=== PATIENT | female | born 1945 | race American Indian/Alaskan Native ===

== ENCOUNTER 2016-12-14 13:33 | Emergency (ER) | payer MEDICARE ==
[2016-12-14] MEDS ORDERED: PERCOCET 5/325 PO ONE (15:14)
--- NOTE | 2016-12-14 16:56 | Cat Scan Report ---
FINAL REPORT PROCEDURE: CT CERVICAL SPINE WO CON TECHNIQUE: Computerized tomography of the cervical spine was performed from the skull base to T1 without contrast material. HISTORY: Neck pain after fall. COMPARISON: CT scan dated 09/27/2016. FINDINGS: C2-3: [place] through the right C3 lamina unchanged. Mild diffuse disc bulge. C3-4: Right-sided facet arthropathy. Moderate right paracentral disc bulge/herniation. C4-5: Moderate right-sided arthropathy with moderate foraminal stenosis. Small posterior and uncovertebral osteophytes. Mild disc bulge. C5-6: On sagittal images there is slight increased density overlying the spinal canal at C5-6. This is similar to prior examination. C6-7: Similar to above level. C7-T1: No significant abnormality. Other: Normal alignment. Straightening of cervical lordosis. Slight C4-5 anterolisthesis. Multilevel osteophytes. Atherosclerosis. IMPRESSION: Osteopenia and degenerative changes of the cervical spine. No CT evidence of cervical spine fracture. [place] through the right C3 lamina and slight increase in density on sagittal images overlying the spinal canal at C5-6, felt to most likely be artifact and/or volume averaging. Findings are felt to be unchanged compared to prior study. Consider further evaluation including MRI of the brain if there is continued clinical concern and patient has no contraindication to MRI.
--- NOTE | 2016-12-14 17:06 | Cat Scan Report ---
FINAL REPORT EXAM: CT HEAD/BRAIN WO CON HISTORY: headache s/p fall COMPARISON: September 2016. TECHNIQUE: Axial images obtained skull base through vertex. FINDINGS: No acute intracranial hemorrhage, midline shift or pathologic extra axial fluid collection. Age related volume loss with compensatory dilatation of the ventricular system and chronic small vessel ischemic disease. Otherwise, singh-white differentiation preserved. Calvarium grossly intact. Chronic lacunar infarcts of the left coronal radiata and bilateral basal ganglia. Remote left pontine infarct measuring 5 millimeters. Mild mucosal thickening of the paranasal sinuses. Mastoid air cells are clear. Visualized orbits are grossly unremarkable. IMPRESSION: No grossly acute intracranial abnormality. Mild to moderate age related volume loss and chronic small vessel ischemic disease. Stable chronic lacunar infarcts.
--- NOTE | 2016-12-14 17:42 | Emergency Department Report ---
HPI - General Chief Complaint: Fall Time Seen by Provider: 12/14/16 15:08 - HPI HPI: Chief complaint: Fall, headache, right shoulder, right rib and low back pain HPI: Patient is 71-year-old female with a history of sciatica, right rotator cuff injury, chronic pain who is followed by chronic pain physician and takes Percocet 10 on a regular basis he states that she fell on Thursday and hit the right side of her face and her right shoulder. Mode of arrival: [EMS] Source: [Patient] Began: Thursday Duration: 3 days Context: See above Quality: Dull Severity: 10 out of 10 Improved with: Nothing Worsened with: Movement of right shoulder Associated signs and symptoms: No incontinence of urine or stool. ED Past Medical Hx - Past Medical History Previous Medical History?: Yes Hx Hypertension: Yes Hx CVA: Yes Hx Diabetes: Yes Additional medical history: Scoliosis, chronic pain, left sciatica - Surgical History Additional Surgical History: right shoulder rotator cuff surgery - Social History Smoking Status: Never Smoker Substance Use Type: None - Medications Home Medications: Home Medications Medication Instructions Recorded Confirmed Last Taken Type Aspirin [Aspirin BABY CHEW TAB] 81 mg PO QDAY 07/29/15 09/28/16 1 Day Ago History Bupropion HCl [buPROPion] 75 mg PO BID 07/29/15 09/28/16 1 Day Ago History Carboxymethyl/Gly/Poly80/Pf 1 drop OU QID 07/29/15 09/28/16 1 Day Ago History [Refresh Optive Advanced Drops] Lisinopril [Zestril TAB] 20 mg PO QDAY 07/29/15 09/28/16 1 Day Ago History Metoprolol [Lopressor TAB] 150 mg PO BID 07/29/15 09/28/16 1 Day Ago History Simvastatin [Zocor TAB] 20 mg PO QHS 07/29/15 09/28/16 1 Day Ago History amLODIPine [Norvasc] 10 mg PO DAILY #30 tab 08/02/15 09/28/16 1 Day Ago Rx HYDROcodone/APAP 5-325 [[place] 1 each PO Q6HR PRN #20 tablet 08/30/16 09/28/16 1 Day Ago Rx 5-325 mg TAB] HYDROcodone/APAP 5-325 [[place] 1 each PO Q6HR PRN #10 tablet 09/19/16 09/28/16 1 Day Ago Rx 5/325] Omeprazole Magnesium [PriLOSEC Otc] 40 mg PO QDAY 09/19/16 09/28/16 1 Day Ago History oxyCODONE /ACETAMINOPHEN [Percocet 1 tab PO Q6HR PRN #20 tablet 12/14/16 Unknown Rx 5/325 mg] ED Review of Systems ROS: Stated complaint: FALL Other details as noted in HPI ROS Constitutional: No fever ENT: No uri symptoms Cardiovascular: No chest pain Respiratory: No sob or cough GI: No nausea vomiting or diarrhea : No dysuria frequency or urgency, Skin: No rash Neuro: Patient uses a cane and sometimes a wheelchair because of her sciatica Psych: No depression Edvin/lymph: No edema Physical Exam - Physical Exam Vital Signs: Vital Signs 12/14/16 16:16 Respiratory 18 Rate Physical Exam: GENERAL: The patient is well-developed well-nourished . HEENT: Normocephalic. Extraocular motions are intact. Patient has moist mucous membranes. Ecchymosis to the right spiritism area. TMs negative. Pupils equal round react to light. NECK: Supple. No meningitic signs are noted. There is no adenopathy noted. CHEST/LUNGS: Clear to auscultation. There is no respiratory distress noted. HEART/CARDIOVASCULAR: Regular. There is no tachycardia. There is no gallop rub or murmur. ABDOMEN: Abdomen is soft, nontender. Patient has normal bowel sounds. There is no abdominal distention. SKIN: There is no rash. There is no edema. There is no diaphoresis. NEURO: The patient is awake, alert, and oriented. The patient is cooperative. The patient has no focal neurologic deficits. The patient has normal speech. MUSCULOSKELETAL: Full range of motion of all extremities. Pain diffusely to the right shoulder. Negative straight leg raise. ED Course Vital Signs 12/14/16 16:16 Respiratory 18 Rate - Reevaluation(s) Reevaluation #1: 12/14/16 Patient given 5 mg Percocet here in the emergency department. ED Medical Decision Making - Radiology Data Radiology results: report reviewed (CT of the head and C-spine showed no acute process.) interpreted by me: X-ray of the right shoulder, right ribs showed no acute process. X-ray of the lumbar spine shows significant scoliosis and degenerative disc disease but no acute fracture. Critical care attestation.: If time is entered above; I have spent that time in minutes in the direct care of this critically ill patient, excluding procedure time. ED Disposition Clinical Impression: Shoulder contusion Qualifiers: Encounter type: initial encounter Laterality: right Qualified Code(s): S40.011A - Contusion of right shoulder, initial encounter Facial contusion Qualifiers: Encounter type: initial encounter Qualified Code(s): S00.83XA - Contusion of other part of head, initial encounter Chest wall contusion Qualifiers: Encounter type: initial encounter Laterality: right Qualified Code(s): S20.211A - Contusion of right front wall of thorax, initial encounter Lumbar strain Qualifiers: Encounter type: initial encounter Qualified Code(s): S39.012A - Strain of muscle, fascia and tendon of lower back, initial encounter Disposition: DISCHARGED TO HOME OR SELFCARE Is pt being admited?: No Does the pt Need Aspirin: No Condition: Stable Instructions: Contusion in Adults (ED), Sciatica (ED) Prescriptions: oxyCODONE /ACETAMINOPHEN [Percocet 5/325 mg] 1 tab PO Q6HR PRN #20 tablet PRN Reason: Pain Referrals: PRIMARY CARE, [Primary Care Provider] - 3-5 Days Time of Disposition: 17:31
[2016-12-14] MEDS ORDERED: LOPRESSOR PO ONE (18:28)
[2016-12-14] MEDS ORDERED: ZESTRIL PO ONE (18:29)
[2016-12-14 18:37] VITALS: BP 191/111
--- NOTE | 2016-12-15 08:34 | XRay Report ---
RIGHT SHOULDER, 3 VIEWS: HISTORY: Right shoulder pain after fall. FINDINGS: Mild osteopenia is suspected. The right humeral head is high-riding by at least 1 cm compared to the glenoid of the scapula. This suggests a rotator cuff tear. There is no evidence for fracture, dislocation or bone lesion. Mild arthritic changes are noted. IMPRESSION: Osteopenia. Degenerative changes. Rotator cuff tear is suspected. Consider further evaluation with MRI right shoulder without contrast or MR right shoulder arthrogram.
--- NOTE | 2016-12-15 11:02 | XRay Report ---
LUMBAR SPINE 3 VIEWS: HISTORY: Back pain, fall. FINDINGS: Rotoscoliosis of lumbar spine with convexity to left. [place] of scoliosis at L3. Normal height of vertebral bodies. Decrease in height of intervertebral disc spaces. Sclerotic articular surfaces with peripheral osteophyte suggestive of degenerative changes. No fracture. Calcified abdominal aorta without aneurysm. IMPRESSION: Degenerative lumbar spine.
--- NOTE | 2016-12-15 11:02 | XRay Report ---
CHEST WITH RIGHT RIBS: FINDINGS: Normal cardiomediastinal silhouette. No consolidation, pneumothorax or pleural effusion. No evidence of acute rib fracture. IMPRESSION: Essentially negative study.
== END 2016-12-14 18:37 | disposition home or self-care (01) ==
LOC: ED 13:33
DX: S40.011A Contusion of right shoulder, initial encounter (principal); S00.83XA Contusion of other part of head, initial encounter; S20.211A Contusion of right front wall of thorax, initial encounter; S39.012A Strain of muscle, fascia and tendon of lower back, initial encounter; I10 Essential (primary) hypertension; E11.9 Type 2 diabetes mellitus without complications; Z86.73 Personal history of transient ischemic attack (TIA), and cerebral infarction without residual deficits; W18.30XA Fall on same level, unspecified, initial encounter; Y93.9 Activity, unspecified; Y92.9 Unspecified place or not applicable; Y99.9 Unspecified external cause status
CPT/HCPCS: 70450; 72100; 72125

== ENCOUNTER 2017-01-07 20:11 | Inpatient (IN) | payer MEDICARE ==
[2017-01-07] MEDS ORDERED: ATIVAN ONE (20:55)
[2017-01-07] MEDS ORDERED: ATIVAN IM ONE (21:02)
[2017-01-07] MEDS ORDERED: XYLOCAINE 1%/ EPI 1:100,000 INFILTRATI ONE (21:04)
[2017-01-07 21:25] LABS: Basophils % (Auto) 0.8 % (0.0-1.8); Eosinophils % (Auto) 0.5 % (0.0-4.3); Mean Corpuscular HGB Conc 24 % (30-34); Mean Corpuscular Volume 90 fl (79-97); Platelet Count 260 K/mm3 (140-440); Red Blood Count 3.78 M/mm3 (3.65-5.03); Red Cell Distribution Width 17.8 % (13.2-15.2); White Blood Count 5.1 K/mm3 (4.5-11.0)
[2017-01-07 21:26] LABS: Hematocrit 33.9 % (30.3-42.9); Hemoglobin 8.1 gm/dl (10.1-14.3); Mean Corpuscular Hemoglobin 22 pg (28-32)
[2017-01-07 21:37] LABS: Bacteria,Urine 1+ /HPF (Negative); Bilirubin,Urine NEG (Negative); Blood,Urine NEG (Negative); Ketones,Urine TR mg/dL (Negative); Leukocyte Esterase,Urine NEG (Negative); Mucus,Urine FEW /HPF; Nitrite,Urine NEG (Negative); Urobilinogen,Urine < 2.0 mg/dL (<2.0); WBC,Urine < 1.0 /HPF (0.0-6.0)
[2017-01-07 21:49] LABS: Albumin 3.3 g/dL (3.9-5); Albumin/Globulin Ratio 0.9 %; BUN/Creatinine Ratio 10.33; Bilirubin,Total 0.2 mg/dL (0.1-1.2); Chloride 104.1 mmol/L (98-107); Potassium 4.5 mmol/L (3.6-5.0); Total Protein 6.9 g/dL (6.3-8.2)
[2017-01-07] MEDS ORDERED: APRESOLINE IV ONE ×2 (21:54→23:28)
[2017-01-07] MEDS ORDERED: NACL 0.9% 500 ML 500 ML IV ONE (21:54)
--- NOTE | 2017-01-07 21:55 | Emergency Department Report ---
ED General Adult HPI - General Chief complaint: Dyspnea/Respdistress Stated complaint: CHEST/ABD PAIN Time Seen by Provider: 01/07/17 20:32 Source: patient, EMS (ems notes not available at time of chart dictation), RN notes reviewed, old records reviewed Mode of arrival: Stretcher Limitations: Altered Mental Status, Physical Limitation - History of Present Illness Initial comments: This is a 71-year-old female. She is previously unknown to me. Has a past medical history of diabetes, hypertension, stroke, prescription drug abuse, renal insufficiency. Patient is brought to the hospital by EMS. To me, the patient's primary complaint is abdominal pain. It is left-sided and radiates to the epigastric region. It has been present for 3 days. Cannotdescribe exacerbating or relieving factors. Patient denies severe chest pain and shortness of breath. She is confused. She is able to list her name, has difficulty with a year, knows that she is not hospital, does not know the day of the week. Denies irritative and obstructive urinary symptoms. No family spell for collateral information. -: unknown Radiation: abdomen Quality: aching Consistency: intermittent Improves with: rest Worsens with: movement Associated Symptoms: confusion, loss of appetite, weakness - Related Data Home Medications Medication Instructions Recorded Confirmed Last Taken Aspirin [Aspirin BABY CHEW TAB] 81 mg PO QDAY 07/29/15 09/28/16 1 Day Ago Carboxymethyl/Gly/Poly80/Pf 1 drop OU QID 07/29/15 09/28/16 1 Day Ago [Refresh Optive Advanced Drops] Simvastatin [Zocor TAB] 20 mg PO QHS 07/29/15 09/28/16 1 Day Ago Omeprazole Magnesium [PriLOSEC Otc] 40 mg PO QDAY 09/19/16 09/28/16 1 Day Ago Previous Rx's Medication Instructions Recorded Last Taken Type HYDROcodone/APAP 5-325 [[place] 1 each PO Q6HR PRN #20 tablet 08/30/16 1 Day Ago Rx 5-325 mg TAB] HYDROcodone/APAP 5-325 [[place] 1 each PO Q6HR PRN #10 tablet 09/19/16 1 Day Ago Rx 5/325] Bupropion HCl [buPROPion] 75 mg PO BID #60 tablet 12/14/16 Unknown Rx Lisinopril [Zestril TAB] 20 mg PO QDAY #30 tablet 12/14/16 Unknown Rx Metoprolol [Lopressor TAB] 150 mg PO BID #60 tablet 12/14/16 Unknown Rx amLODIPine [Norvasc] 10 mg PO DAILY #30 tab 12/14/16 Unknown Rx oxyCODONE /ACETAMINOPHEN [Percocet 1 tab PO Q6HR PRN #20 tablet 12/14/16 Unknown Rx 5/325 mg] Allergies Allergy/AdvReac Type Severity Reaction Status Date / Time No Known Allergies Allergy Unverified 07/29/15 10:13 ED Review of Systems ROS: Stated complaint: CHEST/ABD PAIN Other details as noted in HPI Constitutional: malaise, weakness Eyes: denies: vision change ENT: denies: epistaxis, congestion Respiratory: see HPI Cardiovascular: as per HPI Gastrointestinal: abdominal pain Genitourinary: as per HPI Musculoskeletal: as per HPI Skin: as per HPI Neurological: weakness, confusion Psychiatric: anxiety ED Past Medical Hx - Past Medical History Previous Medical History?: Yes Hx Hypertension: Yes Hx CVA: Yes (x3 2013) Hx Heart Attack/AMI: Yes (2012) Hx Diabetes: Yes Additional medical history: Scoliosis, chronic pain, left sciatica, L. eye defecit - Surgical History Past Surgical History?: Yes Additional Surgical History: right shoulder rotator cuff surgery - Social History Smoking Status: Never Smoker Substance Use Type: None - Medications Home Medications: Home Medications Medication Instructions Recorded Confirmed Last Taken Type Aspirin [Aspirin BABY CHEW TAB] 81 mg PO QDAY 07/29/15 09/28/16 1 Day Ago History Carboxymethyl/Gly/Poly80/Pf 1 drop OU QID 07/29/15 09/28/16 1 Day Ago History [Refresh Optive Advanced Drops] Simvastatin [Zocor TAB] 20 mg PO QHS 07/29/15 09/28/16 1 Day Ago History HYDROcodone/APAP 5-325 [[place] 1 each PO Q6HR PRN #20 tablet 08/30/16 09/28/16 1 Day Ago Rx 5-325 mg TAB] HYDROcodone/APAP 5-325 [[place] 1 each PO Q6HR PRN #10 tablet 09/19/16 09/28/16 1 Day Ago Rx 5/325] Omeprazole Magnesium [PriLOSEC Otc] 40 mg PO QDAY 09/19/16 09/28/16 1 Day Ago History Bupropion HCl [buPROPion] 75 mg PO BID #60 tablet 12/14/16 Unknown Rx Lisinopril [Zestril TAB] 20 mg PO QDAY #30 tablet 12/14/16 Unknown Rx Metoprolol [Lopressor TAB] 150 mg PO BID #60 tablet 12/14/16 Unknown Rx amLODIPine [Norvasc] 10 mg PO DAILY #30 tab 12/14/16 Unknown Rx oxyCODONE /ACETAMINOPHEN [Percocet 1 tab PO Q6HR PRN #20 tablet 12/14/16 Unknown Rx 5/325 mg] ED Physical Exam - General Limitations: Altered Mental Status, Physical Limitation General appearance: alert, in no apparent distress - Head Head exam: Present: atraumatic, normocephalic - Eye Eye exam: Present: normal appearance, EOMI. Absent: nystagmus - ENT ENT exam: Present: mucous membranes dry - Neck Neck exam: Present: normal inspection, full ROM. Absent: tenderness, meningismus - Respiratory Respiratory exam: Present: normal lung sounds bilaterally. Absent: respiratory distress, wheezes, rales, rhonchi, stridor, chest wall tenderness - Cardiovascular Cardiovascular Exam: Present: normal rhythm, tachycardia, normal heart sounds. Absent: systolic murmur, diastolic murmur, rubs, gallop - GI/Abdominal GI/Abdominal exam: Present: soft, tenderness, normal bowel sounds. Absent: distended, guarding, rebound, rigid, pulsatile mass - Extremities Exam Extremities exam: Present: normal inspection, full ROM, normal capillary refill. Absent: tenderness, pedal edema, joint swelling, calf tenderness - Back Exam Back exam: Present: normal inspection, full ROM. Absent: tenderness, CVA tenderness (R), CVA tenderness (L), muscle spasm, paraspinal tenderness, vertebral tenderness - Neurological Exam Neurological exam: Present: alert, other (Extraocular movements intact. Tongue midline. No facial droop. Facial sensation intact to light touch in the V1, V2 , V3 distribution bilaterally. 5 and 5 strength in 4 extremities.. Sensation is intact to light touch in 4 extremities.). Absent: motor sensory deficit - Psychiatric Psychiatric exam: Present: anxious - Skin Skin exam: Present: warm, dry, intact, normal color. Absent: rash ED Course Vital Signs 01/07/17 01/07/17 01/07/17 20:08 20:10 20:20 Temperature Pulse Rate 107 H 106 H 101 H Pulse Rate [ Left Radial] Respiratory 11 L 14 18 Rate Blood Pressure 219/111 Blood Pressure [Left Radial Artery] Blood Pressure [Right] O2 Sat by Pulse 95 93 96 Oximetry 01/07/17 01/07/17 01/07/17 20:30 20:33 20:40 Temperature 98.4 F Pulse Rate 102 H 102 H 97 H Pulse Rate [ Left Radial] Respiratory 18 14 Rate Blood Pressure 219/111 219/111 211/112 Blood Pressure [Left Radial Artery] Blood Pressure [Right] O2 Sat by Pulse 95 96 96 Oximetry 01/07/17 01/07/17 01/07/17 20:50 21:00 21:10 Temperature Pulse Rate 102 H 104 H 107 H Pulse Rate [ Left Radial] Respiratory 20 16 18 Rate Blood Pressure 216/127 216/127 216/127 Blood Pressure [Left Radial Artery] Blood Pressure [Right] O2 Sat by Pulse 96 97 96 Oximetry 01/07/17 01/07/17 01/07/17 21:20 21:30 21:40 Temperature Pulse Rate 100 H 117 H 114 H Pulse Rate [ Left Radial] Respiratory 16 18 23 Rate Blood Pressure 216/127 216/127 216/127 Blood Pressure [Left Radial Artery] Blood Pressure [Right] O2 Sat by Pulse 97 88 93 Oximetry 01/07/17 01/07/17 01/07/17 21:50 22:00 22:10 Temperature Pulse Rate 105 H 102 H 101 H Pulse Rate [ Left Radial] Respiratory 14 21 15 Rate Blood Pressure 216/127 216/127 216/127 Blood Pressure [Left Radial Artery] Blood Pressure [Right] O2 Sat by Pulse 95 85 86 Oximetry 01/07/17 01/08/17 01/08/17 22:54 00:45 01:30 Temperature 97.8 F Pulse Rate 101 H 101 H 108 H Pulse Rate [ Left Radial] Respiratory 15 Rate Blood Pressure 211/112 179/113 Blood Pressure [Left Radial Artery] Blood Pressure 156/82 [Right] O2 Sat by Pulse 98 Oximetry 01/08/17 01/08/17 02:58 03:02 Temperature 98.2 F Pulse Rate 107 H Pulse Rate [ 107 H Left Radial] Respiratory 18 Rate Blood Pressure 189/99 Blood Pressure 189/99 [Left Radial Artery] Blood Pressure [Right] O2 Sat by Pulse 98 Oximetry - Reevaluation(s) Reevaluation #1: 01/07/17 22:23 Differential diagnosis: Pneumonia, urinary tract infection, hypertensive encephalopathy, metabolic encephalopathy, AAA, peritonitis, diverticulitis, perforated viscus Assessment and plan: 71-year-old female with abdominal pain, hypertension, somewhat delirious. She is able to be calmed down, and has a nonfocal neurologic examination. She was a very difficult IV stick. Myself and multiple nurses were unable to establish peripheral IV access on her. Given her abdominal pain, abnormal vital signs, the patient required emergent placement of a central line. A right-sided internal jugular central line was placed by myself using typical sterile technique using ultrasound guidance, with no obvious complications. Laboratory studies, CT scan of the head, CT scan abdomen and pelvis are pending. Renal insufficiency appears slightly worsening baseline. The patient does not have intracranial hemorrhage. Reassessment once radiology studies have resulted. Reevaluation #2: 01/07/17 23:[address] scan of the head negative for acute disease. Chronic findings are noted. Blood pressure still elevated, additional hydralazine noted. Noncontrast CT scan of the head just possible gallstone pancreatitis less gallstone inflammation of the pancreas. Liver function tests and lipase are unremarkable. Blood cultures are ordered. Antibiotics are ordered. Case is discussed with gastroenterology, Dr. Chery, who is group will follow as a consult. Elevated troponin level is appreciated. This is most likely in the context of patient's renal insufficiency. Giving CAT scan findings, location of pain, I will withhold aspirin therapy at this time. Case is discussed with Hospital physician, Dr. Nice, who accepts patient to her service. - Central Line Placement Right IJ Consent Obtained: verbal consent, written consent, emergent situation Time Out Performed: Yes Patient Placed on Monitor/Pulse Ox: Yes MD Prep: mask, gown, gloves Central Line Prep: Chlorhexidine scrub Local Anesthesia Used: Lidocaine 1% Amount of Anesthesia Used (mls): 8 Ultrasound Used for Placement: Yes Central Line Lumen Inserted: triple Bloods Obtained for Lab: Yes Central Line Position: good blood return, all ports aspirated, flus, sutured in place with 2-0 Dressing Applied: Tegaderm Post Procedure X-Ray: tip of catheter in good p Patient Tolerated Procedure: well Complications: none ED Medical Decision Making - Lab Data Result diagrams: 01/07/17 20:37 01/07/17 20:37 Vital Signs 01/07/17 20:33 Temperature 98.4 F Pulse Rate 102 H Blood Pressure 219/111 O2 Sat by Pulse 96 Oximetry Lab Results 01/07/17 01/07/17 01/07/17 Range/Units 20:37 20:37 20:42 WBC 5.1 (4.5-11.0) K/mm3 RBC 3.78 (3.65-5.03) M/mm3 Hgb 8.1 L (10.1-14.3) gm/dl Hct 33.9 (30.3-42.9) % MCV 90 (79-97) fl MCH 22 L (28-32) pg MCHC 24 L (30-34) % RDW 17.8 H (13.2-15.2) % Plt Count 260 (140-440) K/mm3 Lymph % (Auto) 21.7 (13.4-35.0) % [place] % (Auto) 7.6 H (0.0-7.3) % Eos % (Auto) 0.5 (0.0-4.3) % Baso % (Auto) 0.8 (0.0-1.8) % Lymph # 1.1 L (1.2-5.4) K/mm3 [place] # 0.4 (0.0-0.8) K/mm3 Eos # 0.0 (0.0-0.4) K/mm3 Baso # 0.0 (0.0-0.1) K/mm3 Seg Neutrophils % 69.4 (40.0-70.0) % Seg Neutrophils # 3.5 (1.8-7.7) K/mm3 Sodium 142 (137-145) mmol/L Potassium 4.5 (3.6-5.0) mmol/L Chloride 104.1 (98-107) mmol/L Carbon Dioxide 16 L (22-30) mmol/L Anion Gap 26 mmol/L BUN 31 H (7-17) mg/dL Creatinine 3.0 H (0.7-1.2) mg/dL Estimated GFR 19 ml/min BUN/Creatinine Ratio 10.33 % Glucose 97 (65-100) mg/dL Calcium 9.0 (8.4-10.2) mg/dL Total Bilirubin 0.2 (0.1-1.2) mg/dL AST 25 (5-40) units/L ALT 13 (7-56) units/L Alkaline Phosphatase 71 (35-129) units/L Troponin T 0.334 H* (0.00-0.029) ng/mL Total Protein 6.9 (6.3-8.2) g/dL Albumin 3.3 L (3.9-5) g/dL Albumin/Globulin Ratio 0.9 % Lipase 11 L (13-60) units/L Urine Color Yellow (Yellow) Urine Turbidity Clear (Clear) Urine pH 5.0 (5.0-7.0) Ur Specific [place] 1.020 (1.003-1.030) Urine Protein 100 mg/dl (Negative) mg/dL Urine Glucose (UA) 150 (Negative) mg/dL Urine Ketones Tr (Negative) mg/dL Urine Blood Neg (Negative) Urine Nitrite Neg (Negative) Urine Bilirubin Neg (Negative) Urine Urobilinogen < 2.0 (<2.0) mg/dL Ur Leukocyte Esterase Neg (Negative) Urine WBC (Auto) < 1.0 (0.0-6.0) /HPF Urine RBC (Auto) 7.0 (0.0-6.0) /HPF Urine Bacteria (Auto) 1+ (Negative) /HPF Urine Mucus Few /HPF - EKG Data 01/07/17 22:26 EKG demonstrates sinus tachycardia, global in the inferior leads, poor R progression, motion artifact, not morphologically consistent with STEMI. Appears grossly unchanged from prior EKG from 09/28/2016. - Radiology Data Radiology results: report reviewed, image reviewed interpreted by me: X-ray of the chest is rotated, DJD, central line in appropriate placement. No obvious pneumothorax. Noncontrast CAT scan of the head is negative. Noncontrast CAT scan of the abdomen and pelvis suggest possible gallstone pancreatitis. Critical care attestation.: If time is entered above; I have spent that time in minutes in the direct care of this critically ill patient, excluding procedure time. ED Disposition Clinical Impression: Elevated troponin, Accelerated hypertension, HARSHA (acute kidney injury) Disposition: OP ADMITTED IP TO THIS HOSP Is pt being admited?: Yes Condition: Fair
--- NOTE | 2017-01-07 23:06 | XRay Report ---
FINAL REPORT PROCEDURE: XR CHEST 1V AP TECHNIQUE: Chest radiograph anteroposterior view. CPT 98855 HISTORY: Shortness of breath... line placement COMPARISON: No prior studies are available for comparison. FINDINGS: IJ catheter terminates in region of the mid SVC. Prominent thoracolumbar scoliosis is seen. Heart is likely normal in size. No pneumothorax is seen. No focal infiltrate is seen. IMPRESSION: Central venous catheter terminates the region of the mid SVC. No pneumothorax is seen.
--- NOTE | 2017-01-07 23:23 | Cat Scan Report ---
FINAL REPORT PROCEDURE: CT ABDOMEN PELVIS WO CON TECHNIQUE: Computerized axial tomography of the abdomen and pelvis was performed without intravenous contrast. This study is performed without intravascular contrast material and its sensitivity for abdominal and pelvic pathology, including neoplasms, inflammation, abscess, free fluid, thrombosis, arterial dissection and infarction, is reduced compared with a contrast enhanced study. HISTORY: abd pain, nephrolithiasis, cholelithiasis COMPARISON: CT exam dated September 28, 2016 FINDINGS: Heart is top normal limits in size with small pericardial effusion. Likely mild hypoventilatory changes are seen at the lung bases. The spleen and liver appear normal. Probable mild cholelithiasis is seen without evidence of cholecystitis. 8 millimeter calcification is seen in the region of the head of the pancreas with a dilated duct measuring 7.2 millimeters is proximal to this calcification. This may be an obstructing stone in the region of the ampulla. No definite common bile duct dilation is seen by this study. Several other tiny calcifications are seen in the pancreas likely due to prior pancreatitis. No evidence of acute pancreatitis is seen. Adrenal glands and abdominal aorta are normal in size. No right renal abnormality is seen. Vascular calcifications are seen in the left renal hilum. Artifacts limit evaluation of the kidneys. Bladder appears normal. No adnexal masses are seen. No free pelvic fluid is seen. Mild constipation is seen in the ascending, transverse and descending colon. Mild wall thickening is not excluded in the region of the antrum of the stomach as can be seen with gastritis. Normal appendix is seen. Prominent thoracolumbar scoliosis is seen with prominent lumbar spondylosis. IMPRESSION: Cholelithiasis is seen and there is an 8 millimeter calcification in the head of the pancreas with mild dilation of what appears to be a pancreatic duct. This could be obstructing stone in the region of the ampulla or possibly in the accessory pancreatic duct. No obvious biliary ductal dilation is seen. No evidence of pancreatitis or cholecystitis seen. Mild constipation is seen. Possible mild wall thickening is seen in the antrum of the stomach as can be seen with gastritis but findings could be due to underdistention.
[2017-01-07] MEDS ORDERED: ZOSYN/NS 4.5GM/100ML 4.5 GM/100 ML VIAL IV ONE (23:27)
--- NOTE | 2017-01-07 23:31 | Cat Scan Report ---
FINAL REPORT PROCEDURE: CT HEAD/BRAIN WO CON TECHNIQUE: Computerized tomography of the head was performed without contrast material. HISTORY: Delirious COMPARISON: Head CT dated December 14, 2016 FINDINGS: The visualized portions of the paranasal sinuses and mastoid air cells are clear. No calvarial fracture is seen. Stable old lacunar infarct is seen in the left side of the yg old small vessel ischemic changes are seen in the basal ganglia and periventricular white matter, similar to prior study. No acute CVA is seen. No acute intracranial hemorrhage or mass effect is seen. Idiopathic punctate calcifications in the basal ganglia are stable. IMPRESSION: Mild chronic small vessel ischemic changes are seen without evidence of acute abnormality.
--- NOTE | 2017-01-08 00:59 | History and Physical Report ---
History of Present Illness Date of examination: 01/08/17 History of present illness: History spurred the chart, patient is unable to give a history. This is a 71- year-old woman with a history of hypertension, diabetes, chronic pain, CVA in the past comes emergency room complaining of abdominal pain on the left side. Patient is confused, review of system is unobtainable PAST SURGICAL HISTORY: Unknown SOCIAL HISTORY: Unknown FAMILY HISTORY: Unknown Medications and Allergies Allergies Allergy/AdvReac Type Severity Reaction Status Date / Time No Known Allergies Allergy Unverified 07/29/15 10:13 Home Medications Medication Instructions Recorded Confirmed Last Taken Type Aspirin [Aspirin BABY CHEW TAB] 81 mg PO QDAY 07/29/15 01/15/17 1 Day Ago History Carboxymethyl/Gly/Poly80/Pf 1 drop OU QID 07/29/15 01/15/17 1 Day Ago History [Refresh Optive Advanced Drops] Simvastatin [Zocor TAB] 20 mg PO QHS 07/29/15 01/15/17 1 Day Ago History Omeprazole Magnesium [PriLOSEC Otc] 40 mg PO QDAY 09/19/16 01/15/17 1 Day Ago History Bupropion HCl [buPROPion] 75 mg PO BID #60 tablet 12/14/16 01/15/17 Unknown Rx Lisinopril [Zestril TAB] 20 mg PO QDAY #30 tablet 12/14/16 01/15/17 Unknown Rx Metoprolol [Lopressor TAB] 150 mg PO BID #60 tablet 12/14/16 01/15/17 Unknown Rx amLODIPine [Norvasc] 10 mg PO DAILY #30 tab 12/14/16 01/15/17 Unknown Rx oxyCODONE /ACETAMINOPHEN [Percocet 2 tab PO Q6H #15 tablet 01/13/17 01/15/17 Unknown Rx 5/325 mg] Exam - Physical Exam Narrative exam: Gen. appearance: Patient lying in bed, no apparent distress HEENT: Normocephalic, atraumatic, pupils equally round and reactive to light, extraocular movement intact, and no sclericterus,. No JVD or thyromegaly or nodule,neck supple, no carotid bruit ,mucous membranes moist, no exudate or erythema Heart: S1, S2, regular rate and rhythm Lungs: Clear to auscultation bilaterally, breathing comfortable Abdomen: Positive bowel sounds, nontender, nondistended, no organomegaly Extremity: No edema, cyanosis, clubbing Skin: No rash, nodules, warm, dry Neuro: Confused - Constitutional Vitals: Temp Pulse Resp BP Pulse Ox 98.4 F 101 H 15 211/112 86 01/07/17 20:33 01/07/17 22:54 01/07/17 22:10 01/07/17 22:54 01/07/17 22:10 Results - Labs CBC & Chem 7: 01/13/17 08:00 01/13/17 08:00 Labs: Abnormal lab results 01/07/17 01/07/17 01/08/17 Range/Units 20:37 20:37 00:11 Hgb 8.1 L (10.1-14.3) gm/dl MCH 22 L (28-32) pg MCHC 24 L (30-34) % RDW 17.8 H (13.2-15.2) % [place] % (Auto) 7.6 H (0.0-7.3) % Lymph # 1.1 L (1.2-5.4) K/mm3 Carbon Dioxide 16 L (22-30) mmol/L BUN 31 H (7-17) mg/dL Creatinine 3.0 H (0.7-1.2) mg/dL Ammonia (25-60) umol/L Troponin T 0.334 H* 0.338 H* (0.00-0.029) ng/mL Albumin 3.3 L (3.9-5) g/dL Triglycerides 150 H (2-149) mg/dL Cholesterol 252 H (50-199) mg/dL LDL Cholesterol Direct 168 H (50-130) mg/dL Lipase 11 L (13-60) units/L Salicylates (2.8-20.0) mg/dL 01/08/17 01/08/17 Range/Units 00:11 00:11 Hgb (10.1-14.3) gm/dl MCH (28-32) pg MCHC (30-34) % RDW (13.2-15.2) % [place] % (Auto) (0.0-7.3) % Lymph # (1.2-5.4) K/mm3 Carbon Dioxide (22-30) mmol/L BUN (7-17) mg/dL Creatinine (0.7-1.2) mg/dL Ammonia 24.0 L (25-60) umol/L Troponin T (0.00-0.029) ng/mL Albumin (3.9-5) g/dL Triglycerides (2-149) mg/dL Cholesterol (50-199) mg/dL LDL Cholesterol Direct (50-130) mg/dL Lipase (13-60) units/L Salicylates 0.4 L (2.8-20.0) mg/dL - Imaging and Cardiology Chest x-ray: image reviewed CT scan - abdomen: report reviewed CT Scan - head: report reviewed CT scan - pelvis: report reviewed Assessment and Plan Abdominal pain most secondary to pancreatic duct stone Altered mental status secondary to above Hypertension uncontrolled Diabetes type 2 Chronic pain Admits medicine Place on bowel rest, start IV fluid, Zosyn Start IV morphine for pain, consult GI Give a dose of Lopressor now, check fingersticks initiate insulin sliding scale Start DVT prophylaxis
[2017-01-08] MEDS ORDERED: MILK OF MAGNESIA PO PRN (01:01)
[2017-01-08] MEDS ORDERED: TYLENOL PO PRN (01:01)
[2017-01-08] MEDS ORDERED: ZOFRAN IV PRN (01:01)
[2017-01-08] MEDS ORDERED: DULCOLAX PR PRN (01:01)
[2017-01-08] MEDS ORDERED: LOPRESSOR PO ONE ×2 (01:32)
[2017-01-08] MEDS ORDERED: D50W (25GM) IV PRN (01:40)
[2017-01-08] MEDS ORDERED: NACL 0.45% 1000 ML 1,000 ML IV SCH (02:00)
[2017-01-08] MEDS: MORPHINE IV PRN ×2 (02:54→20:01)
[2017-01-08] MEDS: ZOSYN/NS 2.25 GM/50ML 2.25 GM/50 ML BAG IV SCH ×4 (05:12→20:45)
[2017-01-08] MEDS ORDERED: ZOSYN/NS 3.375GM/50ML 50 ML IV SCH (06:00)
[2017-01-08 06:40] LABS: Creatine Kinase MB 9.8 ng/mL (0.0-4.0)
--- NOTE | 2017-01-08 06:43 | Admit Criteria Form ---
Admission Criteria Documentation: HYPERTENSION Clinical Indications for Admission to Inpatient Care ( Place "X" for any and all applicable criteria): Admission is indicated for ANY ONE of the following(1)(2)(3)(4): [ ]I. Hypertensive emergency, with evidence of acute and progressing target organ disease as indicated by ANY ONE of the following: [ ]a) Hypertensive encephalopathy (eg, confusion, altered mental status) [ ]b) Cerebral infarction [ ]c) Intracranial hemorrhage [ ]d) Myocardial ischemia or infarction [ ]e) Pulmonary edema [ ]f) Aortic dissection [ ]g) Seizure [ ]h) Acute renal insufficiency [ ]i) Papilledema [ ]j) Microangiopathic hemolytic anemia [ ]II. Adrenergic crisis (eg, severe hypertension due to pheochromocytoma crisis, cocaine or amphetamine intoxication, or clonidine withdrawal) [ X]III. Severe hypertension (SBP greater than 180 mmHg or DBP greater than 110 mmHg or greater than the 95th percentile for age, gender, and height in pediatric patients) that cannot be controlled (eg, to SBP less than 160 mmHg and DBP less than 100 mmHg in adults) by treatment with oral medication in emergency department or observation care Extended stay beyond goal length of stay may be needed for(11)(12)(13): [ ]a) Persistent hypertensive encephalopathy [ ]b) Continuation of pulmonary edema [ ]c) Recurring or persistent severe hypertension [ ]d) Target organ damage (eg, angina, stroke, aortic dissection) [ ]e) Associated renal insufficiency The original [employer] content created by [employer] has been revised. The portions of the content which have been revised are identified through the use of italic text or in bold, and [facility] has neither reviewed nor approved the modified material. All other unmodified content is copyright [facility]. Please see references footnoted in the original [facility] edition 2016 Admission Criteria Met: Yes
--- NOTE | 2017-01-08 09:56 | Event Note ---
Date: 01/08/17 Consult noted, chart reviewed. Patient is off the floor for ECHO/ MRCP. Will follow up. Sandra Garcia, ACNP-BC
[2017-01-08] MEDS ORDERED: CARBOXYMETHYL OU SCH (10:00)
[2017-01-08] MEDS ORDERED: GLY OU SCH (10:00)
[2017-01-08] MEDS ORDERED: WELLBUTRIN PO SCH (10:00)
[2017-01-08] MEDS ORDERED: POLY80 OU SCH (10:00)
[2017-01-08] MEDS: LOVENOX SUB-Q SCH (11:50)
[2017-01-08] MEDS: NORVASC PO SCH (11:52)
[2017-01-08] MEDS: ZESTRIL PO SCH (11:52)
[2017-01-08] MEDS: PROTONIX PO SCH (11:52)
[2017-01-08] MEDS: BABY ASPIRIN PO SCH (11:53)
[2017-01-08] MEDS: LOPRESSOR PO SCH ×2 (11:53→21:24)
--- NOTE | 2017-01-08 12:44 | Progress Note ---
Assessment and Plan Assessment and plan: 1. Abdominal pain - possibly due to pancreatic duct stone- will get MRCP for further evaluation and f/u GI for further recommendations; cotn IV morphine for pain; cotn empirical antibiotics 2. Metabolic encephalopathy- cont suppotive care; hold wellbutrin 3. Hypertension uncontrolled- restart home meds; adjust as needed 4. Diabetes type 2- cotn insulin sliding scale; monitor accuchecks 5. Chronic pain- cotn prn IV morphine for now and minimize narcotics in view of 2 above 6. DVT propphylaxis-lovenox History Interval history: f/u abdominal pain ; possible stone in pancreatic duct Patient seen at the bedside; Hospitalist Physical - Constitutional Vitals: Temp Pulse Resp BP Pulse Ox 98.0 F 70 24 141/72 100 01/08/17 10:48 01/08/17 11:52 01/08/17 10:48 01/08/17 10:48 01/08/17 10:48 General appearance: Present: no acute distress, well-nourished - EENT Eyes: Present: PERRL. Absent: scleral icterus, conjunctival injection ENT: hearing intact, clear oral mucosa, no oropharyngeal erythema, no poor dentition - Neck Neck: Present: supple. Absent: enlarged thyroid, masses or JVD - Respiratory Respiratory effort: normal Respiratory: negative: diminished, rales, rhonchi, wheezing - Cardiovascular Rhythm: regular Heart Sounds: Present: S1 & S2. Absent: gallop - Extremities Extremities: no ischemia, pulses intact, pulses symmetrical, No edema, normal temperature Peripheral Pulses: within normal limits - Abdominal General gastrointestinal: soft, non-tender, non-distended - Integumentary Integumentary: Present: clear - Psychiatric Psychiatric: appropriate mood/affect, intact judgment & insight - Neurologic Neurologic: CNII-XII intact Results - Labs CBC & Chem 7: 01/07/17 20:37 01/07/17 20:37 Labs: Laboratory Last Values WBC 5.1 K/mm3 (4.5-11.0) 01/07/17 20:37 RBC 3.78 M/mm3 (3.65-5.03) 01/07/17 20:37 Hgb 8.1 gm/dl (10.1-14.3) L 01/07/17 20:37 Hct 33.9 % (30.3-42.9) 01/07/17 20:37 MCV 90 fl (79-97) 01/07/17 20:37 MCH 22 pg (28-32) L 01/07/17 20:37 MCHC 24 % (30-34) L 01/07/17 20:37 RDW 17.8 % (13.2-15.2) H 01/07/17 20:37 Plt Count 260 K/mm3 (140-440) 01/07/17 20:37 Lymph % (Auto) 21.7 % (13.4-35.0) 01/07/17 20:37 [place] % (Auto) 7.6 % (0.0-7.3) H 01/07/17 20:37 Eos % (Auto) 0.5 % (0.0-4.3) 01/07/17 20:37 Baso % (Auto) 0.8 % (0.0-1.8) 01/07/17 20:37 Lymph # 1.1 K/mm3 (1.2-5.4) L 01/07/17 20:37 [place] # 0.4 K/mm3 (0.0-0.8) 01/07/17 20:37 Eos # 0.0 K/mm3 (0.0-0.4) 01/07/17 20:37 Baso # 0.0 K/mm3 (0.0-0.1) 01/07/17 20:37 Seg Neutrophils % 69.4 % (40.0-70.0) 01/07/17 20:37 Seg Neutrophils # 3.5 K/mm3 (1.8-7.7) 01/07/17 20:37 Sodium 142 mmol/L (137-145) 01/07/17 20:37 Potassium 4.5 mmol/L (3.6-5.0) 01/07/17 20:37 Chloride 104.1 mmol/L (98-107) 01/07/17 20:37 Carbon Dioxide 16 mmol/L (22-30) L 01/07/17 20:37 Anion Gap 26 mmol/L 01/07/17 20:37 BUN 31 mg/dL (7-17) H 01/07/17 20:37 Creatinine 3.0 mg/dL (0.7-1.2) H 01/07/17 20:37 Estimated GFR 19 ml/min 01/07/17 20:37 BUN/Creatinine Ratio 10.33 % 01/07/17 20:37 Glucose 97 mg/dL (65-100) 01/07/17 20:37 POC Glucose 76 (70-105) 01/08/17 00:31 Lactic Acid 1.2 mmol/L (0.7-2.0) 01/08/17 00:11 Calcium 9.0 mg/dL (8.4-10.2) 01/07/17 20:37 Total Bilirubin 0.2 mg/dL (0.1-1.2) 01/07/17 20:37 AST 25 units/L (5-40) 01/07/17 20:37 ALT 13 units/L (7-56) 01/07/17 20:37 Alkaline Phosphatase 71 units/L (35-129) 01/07/17 20:37 Ammonia 24.0 umol/L (25-60) L 01/08/17 00:11 Total Creatine Kinase 334 units/L (30-135) H 01/08/17 05:42 CK-MB (CK-2) 9.8 ng/mL (0.0-4.0) H 01/08/17 05:42 CK-MB (CK-2) Rel Index 2.9 (0-4) 01/08/17 05:42 Troponin T 0.346 ng/mL (0.00-0.029) H* 01/08/17 05:42 Total Protein 6.9 g/dL (6.3-8.2) 01/07/17 20:37 Albumin 3.3 g/dL (3.9-5) L 01/07/17 20:37 Albumin/Globulin Ratio 0.9 % 01/07/17 20:37 Triglycerides 150 mg/dL (2-149) H 01/07/17 20:37 Cholesterol 252 mg/dL (50-199) H 01/07/17 20:37 LDL Cholesterol Direct 168 mg/dL (50-130) H 01/07/17 20:37 HDL Cholesterol 54 mg/dL (40-59) 01/07/17 20:37 Cholesterol/HDL Ratio 4.66 % 01/07/17 20:37 Lipase 11 units/L (13-60) L 01/07/17 20:37 Urine Color Yellow (Yellow) 01/07/17 20:42 Urine Turbidity Clear (Clear) 01/07/17 20:42 Urine pH 5.0 (5.0-7.0) 01/07/17 20:42 Ur Specific [place] 1.020 (1.003-1.030) 01/07/17 20:42 Urine Protein 100 mg/dl mg/dL (Negative) 01/07/17 20:42 Urine Glucose (UA) 150 mg/dL (Negative) 01/07/17 20:42 Urine Ketones Tr mg/dL (Negative) 01/07/17 20:42 Urine Blood Neg (Negative) 01/07/17 20: Urine Nitrite Neg (Negative) 01/07/17 20:42 Urine Bilirubin Neg (Negative) 01/07/17 20:42 Urine Urobilinogen < 2.0 mg/dL (<2.0) 01/07/17 20:42 Ur Leukocyte Esterase Neg (Negative) 01/07/17 20:42 Urine WBC (Auto) < 1.0 /HPF (0.0-6.0) 01/07/17 20:42 Urine RBC (Auto) 7.0 /HPF (0.0-6.0) 01/07/17 20:42 Urine Bacteria (Auto) 1+ /HPF (Negative) 01/07/17 20: Urine Mucus Few /HPF 01/07/17 20:42 Salicylates 0.4 mg/dL (2.8-20.0) L 01/08/17 00:11 Acetaminophen < 15.0 ug/mL (10.0-30.0) 01/08/17 00:11 - Imaging and Cardiology CT scan - abdomen: report reviewed (CT scan of abdomen and pelvis- cholelithiasis and irrigated millimeter calcification in the head of the pancreas with mild dilatation of what appears to be a pancreatic duct. This could be obstructing stone in the region of the ampulla or possibly an accessory pancreatic duct. Mild constipation.)
[2017-01-08 12:55] LABS: Creatine Kinase MB 11.8 ng/mL (0.0-4.0)
--- NOTE | 2017-01-08 14:20 | Consultation ---
History of Present Illness Consult date: 01/08/17 Consult reason: elevated troponin History of present illness: This is a 71yr old woman who was brought in with complaints of shortness of breath. She has a history of cardiomyopathy noted by echo during an admission to this hospital 3 months ago. Left ventricular ejection fraction 35-40%. At that time the patient refused further noninvasive cardiac workup. It is unclear if she has followed with a collision mechanic as an outpatient. Comorbidities includes a chronic renal failure, hypertension and chronic pain syndrome. Cardiac consultation requested for elevated troponin. Cardiac enzymes shows a CK of 438 with a CKMB of 11.8. Troponin 0.39. She also has a creatinine of 3.0 consistent with chronic renal failure. Patient denies chest pain. An 12 lead ECG shows a sinus tachycardia. No acute cardiopulmonary process reported on chest x-ray. Medications and Allergies Allergies Allergy/AdvReac Type Severity Reaction Status Date / Time No Known Allergies Allergy Unverified 07/29/15 10:13 Home Medications Medication Instructions Recorded Confirmed Last Taken Type Aspirin [Aspirin BABY CHEW TAB] 81 mg PO QDAY 07/29/15 09/28/16 1 Day Ago History Carboxymethyl/Gly/Poly80/Pf 1 drop OU QID 07/29/15 09/28/16 1 Day Ago History [Refresh Optive Advanced Drops] Simvastatin [Zocor TAB] 20 mg PO QHS 07/29/15 09/28/16 1 Day Ago History HYDROcodone/APAP 5-325 [[place] 1 each PO Q6HR PRN #20 tablet 08/30/16 09/28/16 1 Day Ago Rx 5-325 mg TAB] HYDROcodone/APAP 5-325 [[place] 1 each PO Q6HR PRN #10 tablet 09/19/16 09/28/16 1 Day Ago Rx 5/325] Omeprazole Magnesium [PriLOSEC Otc] 40 mg PO QDAY 09/19/16 09/28/16 1 Day Ago History Bupropion HCl [buPROPion] 75 mg PO BID #60 tablet 12/14/16 Unknown Rx Lisinopril [Zestril TAB] 20 mg PO QDAY #30 tablet 12/14/16 Unknown Rx Metoprolol [Lopressor TAB] 150 mg PO BID #60 tablet 12/14/16 Unknown Rx amLODIPine [Norvasc] 10 mg PO DAILY #30 tab 12/14/16 Unknown Rx oxyCODONE /ACETAMINOPHEN [Percocet 1 tab PO Q6HR PRN #20 tablet 12/14/16 Unknown Rx 5/325 mg] Active Meds: Active Medications Acetaminophen (Tylenol) 650 mg PO Q4H PRN PRN Reason: Pain MILD(1-3)/Fever >100.5/[place] Amlodipine Besylate (Norvasc) 10 mg PO DAILY [facility] Last Admin: 01/08/17 11:52 Dose: 10 mg Aspirin (Baby Aspirin) 81 mg PO QDAY [facility] Last Admin: 01/08/17 11:53 Dose: 81 mg Bisacodyl (Dulcolax) 10 mg DC QDAY PRN PRN Reason: Constipation unrelieved by MOM Dextrose (D50w (25gm)) 50 ml IV PRN PRN PRN Reason: Hypoglycemia Enoxaparin Sodium (Lovenox) 30 mg SUB-Q QDAY [facility] Last Admin: 01/08/17 11:50 Dose: 30 mg Sodium Chloride (Nacl 0.45% 1000 Ml) 1,000 mls @ 100 mls/hr IV DIRECT [facility] Last Admin: 01/08/17 02:55 Dose: 100 mls/hr Piperacillin Sod/Tazobactam Sod (Zosyn/Ns 2.25 Gm/50ml) 2.25 gm in 50 mls @ 100 mls/hr IV Q6H [facility] Last Admin: 01/08/17 11:49 Dose: Not Given Lisinopril (Zestril) 20 mg PO QDAY [facility] Last Admin: 01/08/17 11:52 Dose: 20 mg Magnesium Hydroxide (Milk Of Magnesia) 30 ml PO Q4H PRN PRN Reason: Constipation Metoprolol Tartrate (Lopressor) 150 mg PO BID [facility] Last Admin: 01/08/17 11:53 Dose: 150 mg Miscellaneous Medication (Carboxymethyl/Gly/Poly80/Pf [Refresh Optive Advanced Drops]) 1 drop OU QID [facility] Morphine Sulfate (Morphine) 2 mg IV Q4H PRN PRN Reason: Pain, Moderate (4-6) Last Admin: 01/08/17 02:54 Dose: 2 mg Ondansetron HCl (Zofran) 4 mg IV Q8H PRN PRN Reason: N/V unrelieved by Reglan Pantoprazole Sodium (Protonix) 40 mg PO QDAY [facility] Last Admin: 01/08/17 11:52 Dose: 40 mg Physical Examination Vital Signs Pulse Resp Pulse Ox 107 H 11 L 95 01/07/17 20:08 01/07/17 20:08 01/07/17 20:08 General appearance: no acute distress HEENT: Positive: PERRL Cardiac: Positive: Reg Rate and Rhythm Results 01/07/17 20:37 01/07/17 20:37 Cardiac Enzymes 01/08/17 01/08/17 Range/Units 05:42 12:00 CK-MB (CK-2) 9.8 H 11.8 H (0.0-4.0) ng/mL Assessment and Plan Shortness of breath Chronic Pain syndrome: chronically treated with narcotics Chronic Renal Failure Hypertension Dilated cardiomyopathy ejection fraction 35% on echo 09/2016 patient refused noninvasive cardiac workup in the past
--- NOTE | 2017-01-08 17:13 | Gastroenterology Consultation ---
History of Present Illness - Reason for Consult Consult date: 01/08/17 Abd pain, abnormal CT scan - History of Present Illness Asked to see this 71yo woman for evaluation of abnormal CT scan. Pt was admitted with SOB; she has a known hx of cardiomyopathy and is managed medically. CT A/P was done, which revealed a calcification in the pancreatic head with pancreatic ductal dilation. This was mentioned to possibly be a stone at the level of the ampulla; however, LFT's are normal. No nausea/ vomiting. No CP, but troponins rising. Pt provides limited hx given hx of dementia. Past History Past Medical History: CAD, diabetes, hypertension, stroke Past Surgical History: No surgical history Social history: no significant social history Medications and Allergies Allergies Allergy/AdvReac Type Severity Reaction Status Date / Time No Known Allergies Allergy Unverified 07/29/15 10:13 Home Medications Medication Instructions Recorded Confirmed Last Taken Type Aspirin [Aspirin BABY CHEW TAB] 81 mg PO QDAY 07/29/15 09/28/16 1 Day Ago History Carboxymethyl/Gly/Poly80/Pf 1 drop OU QID 07/29/15 09/28/16 1 Day Ago History [Refresh Optive Advanced Drops] Simvastatin [Zocor TAB] 20 mg PO QHS 07/29/15 09/28/16 1 Day Ago History HYDROcodone/APAP 5-325 [[place] 1 each PO Q6HR PRN #20 tablet 08/30/16 09/28/16 1 Day Ago Rx 5-325 mg TAB] HYDROcodone/APAP 5-325 [[place] 1 each PO Q6HR PRN #10 tablet 09/19/16 09/28/16 1 Day Ago Rx 5/325] Omeprazole Magnesium [PriLOSEC Otc] 40 mg PO QDAY 09/19/16 09/28/16 1 Day Ago History Bupropion HCl [buPROPion] 75 mg PO BID #60 tablet 12/14/16 Unknown Rx Lisinopril [Zestril TAB] 20 mg PO QDAY #30 tablet 12/14/16 Unknown Rx Metoprolol [Lopressor TAB] 150 mg PO BID #60 tablet 12/14/16 Unknown Rx amLODIPine [Norvasc] 10 mg PO DAILY #30 tab 12/14/16 Unknown Rx oxyCODONE /ACETAMINOPHEN [Percocet 1 tab PO Q6HR PRN #20 tablet 12/14/16 Unknown Rx 5/325 mg] Active Meds: Active Medications Acetaminophen (Tylenol) 650 mg PO Q4H PRN PRN Reason: Pain MILD(1-3)/Fever >100.5/[place] Amlodipine Besylate (Norvasc) 10 mg PO DAILY [facility] Last Admin: 01/08/17 11:52 Dose: 10 mg Aspirin (Baby Aspirin) 81 mg PO QDAY [facility] Last Admin: 01/08/17 11:53 Dose: 81 mg Bisacodyl (Dulcolax) 10 mg [place] QDAY PRN PRN Reason: Constipation unrelieved by MOM Dextrose (D50w (25gm)) 50 ml IV PRN PRN PRN Reason: Hypoglycemia Enoxaparin Sodium (Lovenox) 30 mg SUB-Q QDAY [facility] Last Admin: 01/08/17 11:50 Dose: 30 mg Sodium Chloride (Nacl 0.45% 1000 Ml) 1,000 mls @ 100 mls/hr IV DIRECT [facility] Last Admin: 01/08/17 02:55 Dose: 100 mls/hr Piperacillin Sod/Tazobactam Sod (Zosyn/Ns 2.25 Gm/50ml) 2.25 gm in 50 mls @ 100 mls/hr IV Q6H [facility] Last Admin: 01/08/17 11:49 Dose: Not Given Isosorbide Dinitrate/Hydralazine (Bidil 20/37.5mg) 1 each PO Q8HR [facility] Lisinopril (Zestril) 20 mg PO QDAY [facility] Last Admin: 01/08/17 11:52 Dose: 20 mg Magnesium Hydroxide (Milk Of Magnesia) 30 ml PO Q4H PRN PRN Reason: Constipation Metoprolol Tartrate (Lopressor) 150 mg PO BID [facility] Last Admin: 01/08/17 11:53 Dose: 150 mg Miscellaneous Medication (Carboxymethyl/Gly/Poly80/Pf [Refresh Optive Advanced Drops]) 1 drop OU QID [facility] Morphine Sulfate (Morphine) 2 mg IV Q4H PRN PRN Reason: Pain, Moderate (4-6) Last Admin: 01/08/17 02:54 Dose: 2 mg Ondansetron HCl (Zofran) 4 mg IV Q8H PRN PRN Reason: N/V unrelieved by Reglan Pantoprazole Sodium (Protonix) 40 mg PO QDAY [facility] Last Admin: 01/08/17 11:52 Dose: 40 mg Review of Systems - Review of Systems ROS unobtainable: due to mental status Exam - Constitutional Vital Signs: Temp Pulse Resp BP Pulse Ox 98.0 F 70 24 141/72 100 01/08/17 10:48 01/08/17 11:52 01/08/17 10:48 01/08/17 10:48 01/08/17 10:48 General appearance: mild distress - EENT Eyes: PERRL ENT: other (anicteric sclerae) - Neck Neck: supple - Respiratory Respiratory: bilateral: CTA - Cardiovascular Rhythm: regular Heart Sounds: Present: S1 & S2 Extremities: No edema - Gastrointestinal General gastrointestinal: Present: soft, tender (slight tenderness in epigastrium), non-distended, normal bowel sounds - Labs CBC & Chem 7: 01/07/17 20:37 01/07/17 20:37 Lab Results: Laboratory Results - last 24 hr 01/08/17 01/08/17 05:42 12:00 Total Creatine Kinase 334 H 438 H CK-MB (CK-2) 9.8 H 11.8 H CK-MB (CK-2) Rel Index 2.9 2.6 Troponin T 0.346 H* 0.390 H* - Imaging CT Scan: report reviewed Assessment and Plan 71yo woman with above hx a/w SOB, abdominal pain; CT shows ?stone in pancreatic duct vs ampulla. However, LFT's are normal. Rec: 1) MRCP was already ordered; await result 2) Given + troponins, would hold off on endoscopic procedures unless absolutely necessary Thank you for allowing me to participate in the care of your patient.
[2017-01-08] MEDS: BIDIL 20/37.5MG PO SCH (21:25)
[2017-01-08] MEDS ORDERED: ZOCOR PO SCH (22:00)
[2017-01-09] MEDS: MORPHINE IV PRN ×2 (00:20→20:20)
[2017-01-09] MEDS: ZOSYN/NS 2.25 GM/50ML 2.25 GM/50 ML BAG IV SCH ×4 (02:03→20:21)
[2017-01-09 05:59] LABS: Basophils % (Auto) 0.6 % (0.0-1.8); Eosinophils % (Auto) 1.9 % (0.0-4.3); Hemoglobin 8.4 gm/dl (10.1-14.3); Mean Corpuscular HGB Conc 32 % (30-34); Mean Corpuscular Hemoglobin 28 pg (28-32); Mean Corpuscular Volume 88 fl (79-97); Platelet Count 252 K/mm3 (140-440); Red Blood Count 2.99 M/mm3 (3.65-5.03); Red Cell Distribution Width 17.5 % (13.2-15.2); White Blood Count 6.9 K/mm3 (4.5-11.0)
[2017-01-09 06:02] LABS: BUN/Creatinine Ratio 8.62; Calcium 7.9 mg/dL (8.4-10.2); Chloride 106.2 mmol/L (98-107)
[2017-01-09] MEDS: BIDIL 20/37.5MG PO SCH ×3 (06:38→21:56)
[2017-01-09 06:43] LABS: Hematocrit 29.2 % (30.3-42.9)
--- NOTE | 2017-01-09 09:33 | Progress Note ---
Assessment and Plan Shortness of breath Chronic Pain syndrome: chronically treated with narcotics Chronic Renal Failure Hypertension Dilated cardiomyopathy ejection fraction 35% on echo 09/2016 patient refused noninvasive cardiac workup in the past Echocardiogram on this admission confirms a dilated cardiomyopathy, ejection fraction currently 25-30%. Recommendations: Continue medical therapy for dilated cardiomyopathy to include afterload reducing therapy, beta blockers and oral antiplatelet therapy. Diuretics held due to renal failure. Subjective Date of service: 01/09/17 Interval history: Patient resting in bed comfortably. Complains of generalized pain. She denies chest pain and shortness of breath. Objective Vital Signs Temp Pulse Pulse Resp BP BP Pulse Ox 01/09/17 07:45 98.0 F 70 20 151/85 99 01/09/17 06:38 152/70 01/09/17 05:33 98.0 F 70 18 152/70 96 01/09/17 01:11 98.0 F 70 18 155/72 98 01/08/17 21:43 97.4 F L 71 20 179/82 95 01/08/17 21:25 76 193/92 01/08/17 21:24 76 193/92 01/08/17 20:43 100 01/08/17 18:36 98.2 F 71 24 158/80 98 01/08/17 11:52 70 01/08/17 11:21 81 01/08/17 10:48 98.0 F 108 H 24 141/72 100 - Physical Examination General: No Apparent Distress HEENT: Positive: PERRL Cardiac: Positive: Reg Rate and Rhythm Lungs: Positive: Decreased Breath Sounds - Labs and Meds Cardiac Enzymes 01/08/17 Range/Units 12:00 CK-MB (CK-2) 11.8 H (0.0-4.0) ng/mL CBC 01/09/17 Range/Units 04:00 WBC 6.9 (4.5-11.0) K/mm3 RBC 2.99 L (3.65-5.03) M/mm3 Hgb 8.4 L (10.1-14.3) gm/dl Hct 29.2 L (30.3-42.9) % Plt Count 252 (140-440) K/mm3 Lymph # 1.7 (1.2-5.4) K/mm3 [place] # 0.7 (0.0-0.8) K/mm3 Eos # 0.1 (0.0-0.4) K/mm3 Baso # 0.0 (0.0-0.1) K/mm3 Comprehensive Metabolic Panel 01/09/17 Range/Units 04:00 Sodium 143 (137-145) mmol/L Potassium 4.0 (3.6-5.0) mmol/L Chloride 106.2 (98-107) mmol/L Carbon Dioxide 17 L (22-30) mmol/L BUN 25 H (7-17) mg/dL Creatinine 2.9 H (0.7-1.2) mg/dL Glucose 63 L (65-100) mg/dL Calcium 7.9 L (8.4-10.2) mg/dL
--- NOTE | 2017-01-09 14:23 | Progress Note ---
Assessment and Plan Assessment and plan: 1. Abdominal pain - possibly due to pancreatic duct stone- f/u MRCP for further evaluation-still not yet done today due to hypoglycemia earlier; f/u GI for further recommendations; cotn IV morphine for pain; cotn empirical antibiotics 2. Metabolic encephalopathy- cont suppotive care; hold wellbutrin 3. Hypertension uncontrolled- restart home meds; adjust as needed 4. Diabetes type 2 with hypoglycemia- hold insulin; start D5 1/2 NS; monitor accuchecks 5. Chronic pain- cotn prn IV morphine for now and minimize narcotics in view of 2 above 6. DVT propphylaxis-lovenox History Interval history: f/u abdominal pain ; possible stone in pancreatic duct Patient seen at the bedside; complained of abdominal pain; MRI not done as yet for today she had hypoglycemia Hospitalist Physical - Constitutional Vitals: Temp Pulse Resp BP Pulse Ox 98.0 F 70 20 151/85 99 01/09/17 07:45 01/09/17 11:00 01/09/17 07:45 01/09/17 07:45 01/09/17 07:45 General appearance: Present: no acute distress - EENT Eyes: Present: PERRL, EOM intact. Absent: scleral icterus, conjunctival injection ENT: hearing intact, clear oral mucosa, no oropharyngeal erythema - Neck Neck: Present: supple, normal ROM. Absent: enlarged thyroid, masses or JVD - Respiratory Respiratory effort: normal Respiratory: negative: diminished, rales, rhonchi, wheezing - Cardiovascular Rhythm: regular Heart Sounds: Present: S1 & S2. Absent: gallop - Extremities Extremities: no ischemia, pulses intact, pulses symmetrical, No edema - Abdominal General gastrointestinal: soft, tender, non-distended, normal bowel sounds - Integumentary Integumentary: Present: clear - Psychiatric Psychiatric: appropriate mood/affect, cooperative - Neurologic Neurologic: CNII-XII intact, moves all extremities Results - Labs CBC & Chem 7: 01/09/17 04:00 01/09/17 04:00 Labs: Laboratory Last Values WBC 6.9 K/mm3 (4.5-11.0) 01/09/17 04:00 RBC 2.99 M/mm3 (3.65-5.03) L 01/09/17 04:00 Hgb 8.4 gm/dl (10.1-14.3) L 01/09/17 04:00 Hct 29.2 % (30.3-42.9) L 01/09/17 04:00 MCV 88 fl (79-97) 01/09/17 04:00 MCH 28 pg (28-32) 01/09/17 04:00 MCHC 32 % (30-34) 01/09/17 04:00 RDW 17.5 % (13.2-15.2) H 01/09/17 04:00 Plt Count 252 K/mm3 (140-440) 01/09/17 04:00 Lymph % (Auto) 24.5 % (13.4-35.0) 01/09/17 04:00 [place] % (Auto) 10.7 % (0.0-7.3) H 01/09/17 04:00 Eos % (Auto) 1.9 % (0.0-4.3) 01/09/17 04:00 Baso % (Auto) 0.6 % (0.0-1.8) 01/09/17 04:00 Lymph # 1.7 K/mm3 (1.2-5.4) 01/09/17 04:00 [place] # 0.7 K/mm3 (0.0-0.8) 01/09/17 04:00 Eos # 0.1 K/mm3 (0.0-0.4) 01/09/17 04:00 Baso # 0.0 K/mm3 (0.0-0.1) 01/09/17 04:00 Seg Neutrophils % 62.3 % (40.0-70.0) 01/09/17 04:00 Seg Neutrophils # 4.3 K/mm3 (1.8-7.7) 01/09/17 04:00 Sodium 143 mmol/L (137-145) 01/09/17 04:00 Potassium 4.0 mmol/L (3.6-5.0) 01/09/17 04:00 Chloride 106.2 mmol/L (98-107) 01/09/17 04:00 Carbon Dioxide 17 mmol/L (22-30) L 01/09/17 04:00 Anion Gap 24 mmol/L 01/09/17 04:00 BUN 25 mg/dL (7-17) H 01/09/17 04:00 Creatinine 2.9 mg/dL (0.7-1.2) H 01/09/17 04:00 Estimated GFR 19 ml/min 01/09/17 04:00 BUN/Creatinine Ratio 8.62 % 01/09/17 04:00 Glucose 63 mg/dL (65-100) L 01/09/17 04:00 POC Glucose 58 (70-105) L 01/09/17 12:29 Lactic Acid 1.2 mmol/L (0.7-2.0) 01/08/17 00:11 Calcium 7.9 mg/dL (8.4-10.2) L 01/09/17 04:00 Total Bilirubin 0.2 mg/dL (0.1-1.2) 01/07/17 20:37 AST 25 units/L (5-40) 01/07/17 20:37 ALT 13 units/L (7-56) 01/07/17 20:37 Alkaline Phosphatase 71 units/L (35-129) 01/07/17 20:37 Ammonia 24.0 umol/L (25-60) L 01/08/17 00:11 Total Creatine Kinase 438 units/L (30-135) H 01/08/17 12:00 CK-MB (CK-2) 11.8 ng/mL (0.0-4.0) H 01/08/17 12:00 CK-MB (CK-2) Rel Index 2.6 (0-4) 01/08/17 12:00 Troponin T 0.390 ng/mL (0.00-0.029) H* 01/08/17 12:00 Total Protein 6.9 g/dL (6.3-8.2) 01/07/17 20:37 Albumin 3.3 g/dL (3.9-5) L 01/07/17 20:37 Albumin/Globulin Ratio 0.9 % 01/07/17 20:37 Triglycerides 150 mg/dL (2-149) H 01/07/17 20:37 Cholesterol 252 mg/dL (50-199) H 01/07/17 20:37 LDL Cholesterol Direct 168 mg/dL (50-130) H 01/07/17 20:37 HDL Cholesterol 54 mg/dL (40-59) 01/07/17 20:37 Cholesterol/HDL Ratio 4.66 % 01/07/17 20:37 Lipase 11 units/L (13-60) L 01/07/17 20:37 Urine Color Yellow (Yellow) 01/07/17 20: Urine Turbidity Clear (Clear) 01/07/17 20:42 Urine pH 5.0 (5.0-7.0) 01/07/17 20:42 Ur Specific [place] 1.020 (1.003-1.030) 01/07/17 20:42 Urine Protein 100 mg/dl mg/dL (Negative) 01/07/17 20:42 Urine Glucose (UA) 150 mg/dL (Negative) 01/07/17 20:42 Urine Ketones Tr mg/dL (Negative) 01/07/17 20: Urine Blood Neg (Negative) 01/07/17 20: Urine Nitrite Neg (Negative) 01/07/17 20:42 Urine Bilirubin Neg (Negative) 01/07/17 20: Urine Urobilinogen < 2.0 mg/dL (<2.0) 01/07/17 20:42 Ur Leukocyte Esterase Neg (Negative) 01/07/17 20:42 Urine WBC (Auto) < 1.0 /HPF (0.0-6.0) 01/07/17 20:42 Urine RBC (Auto) 7.0 /HPF (0.0-6.0) 01/07/17 20:42 Urine Bacteria (Auto) 1+ /HPF (Negative) 01/07/17 20:42 Urine Mucus Few /HPF 01/07/17 20:42 Salicylates 0.4 mg/dL (2.8-20.0) L 01/08/17 00:11 Acetaminophen < 15.0 ug/mL (10.0-30.0) 01/08/17 00:11
[2017-01-09] MEDS: NORVASC PO SCH (15:06)
[2017-01-09] MEDS: ZESTRIL PO SCH (15:07)
[2017-01-09] MEDS: LOVENOX SUB-Q SCH (15:08)
[2017-01-09] MEDS: LOPRESSOR PO SCH ×2 (15:09→21:56)
[2017-01-09] MEDS: PROTONIX PO SCH (15:09)
[2017-01-09] MEDS: BABY ASPIRIN PO SCH (15:09)
[2017-01-09] MEDS: D5/0.45NS 1,000 ML IV SCH (15:59)
--- NOTE | 2017-01-09 16:06 | Event Note ---
Date: 01/09/17/ Blood culture [facility] in clusters- start vanc for now and await isolation / sensitivity
[2017-01-09] MEDS ORDERED: VANCOMYCIN PHARMACY TO DOSE IV SCH (17:00)
[2017-01-09] MEDS: PERCOCET 5/325 PO PRN (18:00)
--- NOTE | 2017-01-09 19:16 | Gastroenterology Progress Note ---
Assessment and Plan 71yo woman with above hx a/w SOB, abdominal pain; CT shows ?stone in pancreatic duct vs ampulla. However, LFT's are normal. Rec: 1) Since the time of my encounter with Ms. Solano, MRI was attempted and cancelled due to pt non-compliance 2) Repeat LFT's in AM 3) No plans for ERCP at this time Subjective Date of service: 01/09/17 Principal diagnosis: Abd pain Interval history: Pt seen/examined earlier today. Still w/ some abd discomfort. No fevers/ chills. Awaiting MRI at the time of my encounter. Objective - Constitutional Vitals: Temp Pulse Resp BP Pulse Ox 98.2 F 72 20 174/84 98 01/09/17 15:12 01/09/17 15:12 01/09/17 15:12 01/09/17 15:12 01/09/17 15:12 General appearance: no acute distress - Neck Neck: supple - Respiratory Respiratory: bilateral: CTA - Cardiovascular Rhythm: regular Heart Sounds: Present: S1 & S2 - Extremities Extremities: No edema - Gastrointestinal General gastrointestinal: Present: soft, tender (slight tenderness in epigastrium), non-distended, normal bowel sounds - Neurologic Neurological: oriented to person, oriented to place - Labs CBC & Chem 7: 01/09/17 04:00 01/09/17 04:00 Labs: Laboratory Results - last 24 hr 01/08/17 01/09/17 01/09/17 21:33 04:00 04:00 WBC 6.9 RBC 2.99 L Hgb 8.4 L Hct 29.2 L MCV 88 MCH 28 MCHC 32 RDW 17.5 H Plt Count 252 Lymph % (Auto) 24.5 [place] % (Auto) 10.7 H Eos % (Auto) 1.9 Baso % (Auto) 0.6 Lymph # 1.7 [place] # 0.7 Eos # 0.1 Baso # 0.0 Seg Neutrophils % 62.3 Seg Neutrophils # 4.3 Sodium 143 Potassium 4.0 Chloride 106.2 Carbon Dioxide 17 L Anion Gap 24 BUN 25 H Creatinine 2.9 H Estimated GFR 19 BUN/Creatinine Ratio 8.62 Glucose 63 L POC Glucose 99 Calcium 7.9 L 01/09/17 12:29 WBC RBC Hgb Hct MCV MCH MCHC RDW Plt Count Lymph % (Auto) [place] % (Auto) Eos % (Auto) Baso % (Auto) Lymph # [place] # Eos # Baso # Seg Neutrophils % Seg Neutrophils # Sodium Potassium Chloride Carbon Dioxide Anion Gap BUN Creatinine Estimated GFR BUN/Creatinine Ratio Glucose POC Glucose 58 L Calcium
[2017-01-09] MEDS: VANCOMYCIN/NS 1 GM/250 ML 1 GM/250 ML BAG IV SCH (20:20)
[2017-01-10] MEDS: MORPHINE IV PRN ×3 (01:06→23:23)
[2017-01-10] MEDS: ZOSYN/NS 2.25 GM/50ML 2.25 GM/50 ML BAG IV SCH ×2 (01:06→08:55)
[2017-01-10] MEDS: PERCOCET 5/325 PO PRN ×2 (03:00→09:16)
[2017-01-10] MEDS: BIDIL 20/37.5MG PO SCH ×3 (05:14→21:19)
[2017-01-10] MEDS: D5/0.45NS 1,000 ML IV SCH (07:46)
[2017-01-10] MEDS: LOVENOX SUB-Q SCH (09:16)
[2017-01-10] MEDS: PROTONIX PO SCH (09:16)
[2017-01-10] MEDS: BABY ASPIRIN PO SCH (09:17)
[2017-01-10] MEDS: ZESTRIL PO SCH (09:17)
[2017-01-10] MEDS: LOPRESSOR PO SCH ×2 (09:18→21:20)
[2017-01-10] MEDS: NORVASC PO SCH (09:20)
--- NOTE | 2017-01-10 09:38 | Progress Note ---
Assessment and Plan Shortness of breath - resolved Chronic Pain syndrome: chronically treated with narcotics Chronic Renal Failure Hypertension Dilated cardiomyopathy ejection fraction 35% on echo 09/2016 patient refused noninvasive cardiac workup in the past Echocardiogram on this admission confirms a dilated cardiomyopathy, ejection fraction currently 25-30%. Recommendations: Continue medical therapy for dilated cardiomyopathy to include afterload reducing therapy, beta blockers and oral antiplatelet therapy. No further cardiac work-up given patient refusal We will sign off Please call back if needed Subjective Date of service: 01/10/17 Principal diagnosis: Abd pain Interval history: Patient denies chest pain but complains of abdominal pain Objective Vital Signs Temp Pulse Pulse Resp BP BP Pulse Ox 01/10/17 09:20 72 148/72 01/10/17 09:18 72 148/72 01/10/17 09:17 72 148/72 01/10/17 01:11 98.6 F 64 20 158/72 98 01/10/17 00:58 98.0 F 64 22 165/79 98 01/09/17 23:00 61 01/09/17 21:17 97 01/09/17 20:17 97.9 F 67 18 170/81 99 01/09/17 15:12 98.2 F 72 20 174/84 98 01/09/17 15:09 68 174/84 01/09/17 15:07 68 174/84 01/09/17 15:06 68 174/84 01/09/17 12:00 97.8 F 74 18 158/80 99 01/09/17 11:00 70 01/09/17 10:00 20 - Physical Examination General: No Apparent Distress HEENT: Positive: PERRL Neck: Positive: neck supple Cardiac: Positive: Reg Rate and Rhythm Lungs: Positive: Normal Exam Abdomen: Positive: Soft, Tender Extremities: Present: normal
--- NOTE | 2017-01-10 11:30 | Gastroenterology Progress Note ---
Assessment and Plan - Patient Problems (1) Pancreatic duct calculus Current Visit: Yes Status: Chronic Plan to address problem: - The patient has a chronic pancreatic duct calculus that was thoroughly worked up at [facility] last year (office records). There is no need to repeat the MRI scan here. - She has a chronic elevation of her lipase, but there is no obvious pancreatitis on the scans, nor signs of steatorrhea. - We arranged f/u with Dr Villatoro for ERCP/pancreatic stone removal but the patient did not f/u as an outpatient (will re-attempt from clinic). - No need for pancreatic enzymes given lack of steatorrhea, and would suggest a stable scheduled narcotic regimen (also takes pain meds for her back/severe scoliosis). - OK to d/c home per our service, please call with questions. Subjective Date of service: 01/10/17 Principal diagnosis: Pancreatic duct stone Interval history: The patient is tolerating her diet without N/V. She has chronic pain, but there has been no acute change. She has had no hematemesis nor melena. Objective - Constitutional Vitals: Temp Pulse Resp BP Pulse Ox 98.1 F 72 20 148/72 96 01/10/17 08:20 01/10/17 09:20 01/10/17 08:20 01/10/17 09:20 01/10/17 09:41 General appearance: no acute distress - Respiratory Respiratory effort: normal Respiratory: bilateral: CTA - Cardiovascular Rhythm: regular Heart Sounds: Present: S1 & S2 - Gastrointestinal General gastrointestinal: Present: soft, non-tender, non-distended - Labs CBC & Chem 7: 01/09/17 04:00 01/09/17 04:00 Labs: Laboratory Results - last 24 hr 01/09/17 01/09/17 01/09/17 12:29 13:02 16:13 POC Glucose 58 L 161 H 77 01/09/17 01/10/17 21:13 08:28 POC Glucose 100 90
--- NOTE | 2017-01-10 13:21 | Progress Note ---
Assessment and Plan Assessment and plan: 1. Abdominal pain -due to chronic pancreatic duct stone and chronic lipase elevation-d/wed with GI-patient with chronic pancreatic duct calculus that was thoroughly worked up at [facility], [place] and no need for MRI scan here. Will cancel MRIl will d/c once blood c/s finalized to r/o bacteremia- possibly contaminant - 1/2 bottles; she failed to f/u with Dr Villatoro for ERCP/pancreatic stone removal - she will need f/u GI in the clinic on discharge 2. Metabolic encephalopathy- resolved 3. Hypertension control- better; cotn meds; adjust as needed 4. Diabetes type 2 with hypoglycemia- hold insulin; start D5 1/2 NS; monitor accuchecks 5. Chronic pain- cotn prn IV morphine for now and minimize narcotics in view of 2 above 6. Chronic back pain- increase percocet 10mg scheduled; d/c morphine 7. DVT prophylaxis-lovenox History Interval history: f/u abdominal pain ; stone in pancreatic duct Patient seen at the bedside; c/o pain in the abdomen and back Hospitalist Physical - Constitutional Vitals: Temp Pulse Resp BP Pulse Ox 98.1 F 72 20 148/72 96 01/10/17 08:20 01/10/17 09:20 01/10/17 08:20 01/10/17 09:20 01/10/17 09:41 General appearance: Present: no acute distress - EENT Eyes: Present: PERRL. Absent: scleral icterus, conjunctival injection ENT: hearing intact, clear oral mucosa, no oropharyngeal erythema, no poor dentition - Neck Neck: Present: supple, normal ROM. Absent: enlarged thyroid, masses or JVD - Respiratory Respiratory effort: normal Respiratory: negative: diminished, rales, rhonchi, wheezing - Cardiovascular Rhythm: regular Heart Sounds: Present: S1 & S2. Absent: gallop - Extremities Extremities: no ischemia, pulses intact, pulses symmetrical, No edema Peripheral Pulses: within normal limits - Abdominal General gastrointestinal: soft, tender, non-distended, normal bowel sounds - Integumentary Integumentary: Present: clear - Psychiatric Psychiatric: appropriate mood/affect, intact judgment & insight, cooperative - Neurologic Neurologic: CNII-XII intact, moves all extremities Results - Labs CBC & Chem 7: 01/09/17 04:00 01/09/17 04:00 Labs: Laboratory Last Values WBC 6.9 K/mm3 (4.5-11.0) 01/09/17 04:00 RBC 2.99 M/mm3 (3.65-5.03) L 01/09/17 04:00 Hgb 8.4 gm/dl (10.1-14.3) L 01/09/17 04:00 Hct 29.2 % (30.3-42.9) L 01/09/17 04:00 MCV 88 fl (79-97) 01/09/17 04:00 MCH 28 pg (28-32) 01/09/17 04:00 MCHC 32 % (30-34) 01/09/17 04:00 RDW 17.5 % (13.2-15.2) H 01/09/17 04:00 Plt Count 252 K/mm3 (140-440) 01/09/17 04:00 Lymph % (Auto) 24.5 % (13.4-35.0) 01/09/17 04:00 [place] % (Auto) 10.7 % (0.0-7.3) H 01/09/17 04:00 Eos % (Auto) 1.9 % (0.0-4.3) 01/09/17 04:00 Baso % (Auto) 0.6 % (0.0-1.8) 01/09/17 04:00 Lymph # 1.7 K/mm3 (1.2-5.4) 01/09/17 04:00 [place] # 0.7 K/mm3 (0.0-0.8) 01/09/17 04:00 Eos # 0.1 K/mm3 (0.0-0.4) 01/09/17 04:00 Baso # 0.0 K/mm3 (0.0-0.1) 01/09/17 04:00 Seg Neutrophils % 62.3 % (40.0-70.0) 01/09/17 04:00 Seg Neutrophils # 4.3 K/mm3 (1.8-7.7) 01/09/17 04:00 Sodium 143 mmol/L (137-145) 01/09/17 04:00 Potassium 4.0 mmol/L (3.6-5.0) 01/09/17 04:00 Chloride 106.2 mmol/L (98-107) 01/09/17 04:00 Carbon Dioxide 17 mmol/L (22-30) L 01/09/17 04:00 Anion Gap 24 mmol/L 01/09/17 04:00 BUN 25 mg/dL (7-17) H 01/09/17 04:00 Creatinine 2.9 mg/dL (0.7-1.2) H 01/09/17 04:00 Estimated GFR 19 ml/min 01/09/17 04:00 BUN/Creatinine Ratio 8.62 % 01/09/17 04:00 Glucose 63 mg/dL (65-100) L 01/09/17 04:00 POC Glucose 146 (70-105) H 01/10/17 12:23 Lactic Acid 1.2 mmol/L (0.7-2.0) 01/08/17 00:11 Calcium 7.9 mg/dL (8.4-10.2) L 01/09/17 04:00 Total Bilirubin 0.2 mg/dL (0.1-1.2) 01/07/17 20:37 AST 25 units/L (5-40) 01/07/17 20:37 ALT 13 units/L (7-56) 01/07/17 20:37 Alkaline Phosphatase 71 units/L (35-129) 01/07/17 20:37 Ammonia 24.0 umol/L (25-60) L 01/08/17 00:11 Total Creatine Kinase 438 units/L (30-135) H 01/08/17 12:00 CK-MB (CK-2) 11.8 ng/mL (0.0-4.0) H 01/08/17 12:00 CK-MB (CK-2) Rel Index 2.6 (0-4) 01/08/17 12:00 Troponin T 0.390 ng/mL (0.00-0.029) H* 01/08/17 12:00 Total Protein 6.9 g/dL (6.3-8.2) 01/07/17 20:37 Albumin 3.3 g/dL (3.9-5) L 01/07/17 20:37 Albumin/Globulin Ratio 0.9 % 01/07/17 20:37 Triglycerides 150 mg/dL (2-149) H 01/07/17 20:37 Cholesterol 252 mg/dL (50-199) H 01/07/17 20:37 LDL Cholesterol Direct 168 mg/dL (50-130) H 01/07/17 20:37 HDL Cholesterol 54 mg/dL (40-59) 01/07/17 20:37 Cholesterol/HDL Ratio 4.66 % 01/07/17 20:37 Lipase 11 units/L (13-60) L 01/07/17 20:37 Urine Color Yellow (Yellow) 01/07/17 20:42 Urine Turbidity Clear (Clear) 01/07/17 20:42 Urine pH 5.0 (5.0-7.0) 01/07/17 20:42 Ur Specific [place] 1.020 (1.003-1.030) 01/07/17 20: Urine Protein 100 mg/dl mg/dL (Negative) 01/07/17 20:42 Urine Glucose (UA) 150 mg/dL (Negative) 01/07/17 20:42 Urine Ketones Tr mg/dL (Negative) 01/07/17 20:42 Urine Blood Neg (Negative) 01/07/17 20:42 Urine Nitrite Neg (Negative) 01/07/17 20:42 Urine Bilirubin Neg (Negative) 01/07/17 20: Urine Urobilinogen < 2.0 mg/dL (<2.0) 01/07/17 20:42 Ur Leukocyte Esterase Neg (Negative) 01/07/17 20:42 Urine WBC (Auto) < 1.0 /HPF (0.0-6.0) 01/07/17 20:42 Urine RBC (Auto) 7.0 /HPF (0.0-6.0) 01/07/17 20:42 Urine Bacteria (Auto) 1+ /HPF (Negative) 01/07/17 20:42 Urine Mucus Few /HPF 01/07/17 20:42 Salicylates 0.4 mg/dL (2.8-20.0) L 01/08/17 00:11 Acetaminophen < 15.0 ug/mL (10.0-30.0) 01/08/17 00:11
[2017-01-10] MEDS: PERCOCET 5/325 PO SCH ×2 (15:05→21:20)
--- NOTE | 2017-01-10 19:01 | Consultation ---
History of Present Illness - Reason for Consult Consult date: 01/10/17 acute renal failure, chronic renal failure Requesting physician: SHIRIN KAPLAN - History of Present Illness The patient is a 71-year-old lady with a history of diabetes mellitus for at least 25 years, hypertension and chronic kidney disease stage IV with baseline CR 2.4 to 2.5 in her recent admissions at [facility], admitted after she presented with AMS x 2 days duration. The patient had several hospitalizations recently with abdominal pain. She has gallstone in the pancreatic duct and had ERCP/ stone removal planned as out pateint up on d/c from [facility] but she never followed up. She was also meant to follow up with surgery for consideration of cholecystectomy. We are consulted because of elevated CR of 3. The patient has not been taking nonsteroidal anti-inflammatory drugs and was not exposed to radiocontrast recently. Past History Past Medical History: CAD, diabetes, hypertension, stroke Past Surgical History: No surgical history Social history: no significant social history Medications and Allergies Allergies Allergy/AdvReac Type Severity Reaction Status Date / Time No Known Allergies Allergy Unverified 07/29/15 10:13 Home Medications Medication Instructions Recorded Confirmed Last Taken Type Aspirin [Aspirin BABY CHEW TAB] 81 mg PO QDAY 07/29/15 09/28/16 1 Day Ago History Carboxymethyl/Gly/Poly80/Pf 1 drop OU QID 07/29/15 09/28/16 1 Day Ago History [Refresh Optive Advanced Drops] Simvastatin [Zocor TAB] 20 mg PO QHS 07/29/15 09/28/16 1 Day Ago History HYDROcodone/APAP 5-325 [[place] 1 each PO Q6HR PRN #20 tablet 08/30/16 09/28/16 1 Day Ago Rx 5-325 mg TAB] HYDROcodone/APAP 5-325 [[place] 1 each PO Q6HR PRN #10 tablet 09/19/16 09/28/16 1 Day Ago Rx 5/325] Omeprazole Magnesium [PriLOSEC Otc] 40 mg PO QDAY 09/19/16 09/28/16 1 Day Ago History Bupropion HCl [buPROPion] 75 mg PO BID #60 tablet 12/14/16 Unknown Rx Lisinopril [Zestril TAB] 20 mg PO QDAY #30 tablet 01/22/17 Unknown Rx Metoprolol [Lopressor TAB] 150 mg PO BID #60 tablet 12/14/16 Unknown Rx amLODIPine [Norvasc] 10 mg PO DAILY #30 tab 12/14/16 Unknown Rx oxyCODONE /ACETAMINOPHEN [Percocet 1 tab PO Q6HR PRN #20 tablet 12/14/16 Unknown Rx 5/325 mg] Active Meds: Active Medications Acetaminophen (Tylenol) 650 mg PO Q4H PRN PRN Reason: Pain MILD(1-3)/Fever >100.5/GOLDMAN Amlodipine Besylate (Norvasc) 10 mg PO DAILY [facility] Last Admin: 01/10/17 09:20 Dose: 10 mg Aspirin (Baby Aspirin) 81 mg PO QDAY [facility] Last Admin: 01/10/17 09:17 Dose: 81 mg Bisacodyl (Dulcolax) 10 mg [facility] QDAY PRN PRN Reason: Constipation unrelieved by MOM Dextrose (D50w (25gm)) 50 ml IV PRN PRN PRN Reason: Hypoglycemia Last Admin: 01/09/17 12:40 Dose: 50 ml Enoxaparin Sodium (Lovenox) 30 mg SUB-Q QDAY [facility] Last Admin: 01/10/17 09:16 Dose: 30 mg Vancomycin HCl (Vancomycin/Ns 1 Gm/250 Ml) 1 gm in 250 mls @ 125 mls/hr IV Q48H [facility] Last Admin: 01/09/17 20:20 Dose: 125 mls/hr Isosorbide Dinitrate/Hydralazine (Bidil 20/37.5mg) 1 each PO Q8HR [facility] Last Admin: 01/10/17 15:04 Dose: 1 each Lisinopril (Zestril) 20 mg PO QDAY [facility] Last Admin: 01/10/17 09:17 Dose: 20 mg Magnesium Hydroxide (Milk Of Magnesia) 30 ml PO Q4H PRN PRN Reason: Constipation Metoprolol Tartrate (Lopressor) 150 mg PO BID [facility] Last Admin: 01/10/17 09:18 Dose: 150 mg Miscellaneous Medication (Carboxymethyl/Gly/Poly80/Pf [Refresh Optive Advanced Drops]) 1 drop OU QID [facility] Ondansetron HCl (Zofran) 4 mg IV Q8H PRN PRN Reason: N/V unrelieved by Reglan Oxycodone/Acetaminophen (Percocet 5/325) 2 tab PO Q6H [facility] Last Admin: 01/10/17 15:05 Dose: 2 tab Pantoprazole Sodium (Protonix) 40 mg PO QDAY [facility] Last Admin: 01/10/17 09:16 Dose: 40 mg Vancomycin HCl (Vancomycin Pharmacy To Dose) 1 each IV PKCONSULT [facility] PRN Reason: Protocol Review of Systems Constitutional: anorexia, fatigue, malaise, no weight loss, no weight gain Ears, nose, mouth and throat: no ear discharge, no tinnitis Cardiovascular: no chest pain, no orthopnea, no palpitations Respiratory: no cough, no cough with sputum Gastrointestinal: abdominal pain, nausea, vomiting Genitourinary Female: no pelvic pain, no flank pain, no dysuria, no urgency Rectal: no pain, no incontinence Musculoskeletal: no neck stiffness, no neck pain Integumentary: no rash, no pruritis Neurological: no head injury, no transient paralysis Psychiatric: no anxiety, no memory loss, no sleep disturbances Endocrine: no cold intolerance, no heat intolerance Hematologic/Lymphatic: no easy bruising, no easy bleeding Exam - Vital Signs Vital signs: Vital Signs Pulse Resp Pulse Ox 107 H 11 L 95 01/07/17 20:08 01/07/17 20:08 01/07/17 20:08 - General Appearance General appearance: well-developed, well-nourished, appears stated age EENT: PERRL, mucous membranes moist Neck: Present: neck supple, trachea midline. Absent: JVD/HJR, Masses Respiratory: Decreased Breath Sounds, Other (no wheezing ) Heart: regular, normal heart rate, S1S2, no murmurs Gastrointestinal: Present: normoactive bowel sounds. Absent: tenderness Integumentary: no rash, warm and dry Neurologic: no focal deficit, alert and oriented x3, gait normal, strength 5/5 Musculoskeletal: Absent: deformities, joint swelling Psychiatric: mood/affect appropriate, cooperative Results - Lab Results 01/09/17 04:00 01/09/17 04:00 Most recent lab results Calcium 7.9 mg/dL (8.4-10.2) L 01/09/17 04:00 Assessment and Plan 1. 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 Her baseline CR is about 2.4. 2. Abdominal pain, chronic 2/2 pancreatic duct stone 4. Anemia likely 2/2 of chronic kidney disease 5. Type 2 diabetes mellitus, 6. Essential Hypertension 7. History of coronary artery disease. 8. Dilated cardiomyopathy EF 25-30% 9. History of peripheral vascular disease. Plan: She is not too far from her baseline CR CT scan reviewed. No hydronephrosis seen Urine with + proteinuria but no blood. Proteinuria likely 2/2 DM nephropathy She is already on ACEI to decrease progression of renal disease/reduce proteinuria+cardiac indications CR has been stable in the last 3 days No further work up planned from renal perspective. Will follow progression as out patient. Discussed need for tight glucose/BP control to prevent further progression of her renal disease. Avoid nephrotoxins including NSAIDs, contrast exposure Thank you for the consult
[2017-01-10] MEDS ORDERED: MORPHINE IV PRN (23:16)
[2017-01-11] MEDS: BIDIL 20/37.5MG PO SCH ×4 (04:46→22:29)
[2017-01-11] MEDS: MORPHINE IV PRN (04:47)
[2017-01-11] MEDS: PERCOCET 5/325 PO SCH ×4 (04:48→22:29)
[2017-01-11] MEDS: NORVASC PO SCH (09:04)
[2017-01-11] MEDS: LOPRESSOR PO SCH ×2 (09:09→22:30)
[2017-01-11] MEDS: BABY ASPIRIN PO SCH (09:09)
[2017-01-11] MEDS: PROTONIX PO SCH (09:09)
[2017-01-11] MEDS: ZESTRIL PO SCH (09:10)
[2017-01-11] MEDS: LOVENOX SUB-Q SCH (09:12)
--- NOTE | 2017-01-11 09:20 | Discharge Summary ---
Providers - Providers Date of Admission: 01/08/17 01:01 Date of discharge: 01/11/17 Attending physician: SHIRIN KAPLAN 01/09/17 14:28 Consult to Physician [CONS] Routine Consulting Provider: CHELLY GONCALVES Reason For Exam: acute on chronic renal failure Place consult to:: DR GONCALVES Notified:: DR GONCALVES Primary care physician: SWATCHER Hospitalization Reason for admission: abdominal pain;pancreatic duct stone Condition: Fair Pertinent studies: CT scan - abdomen: report reviewed (CT scan of abdomen and pelvis- cholelithiasis and irrigated millimeter calcification in the head of the pancreas with mild dilatation of what appears to be a pancreatic duct. This could be obstructing stone in the region of the ampulla or possibly an accessory pancreatic duct. Mild constipation.) Hospital course: Mr. Solano is a 71 yo F who presented to the ER with abdominal pain and altered mental status ; CT scan confirmed pancreatic duct stone; she was seen by the poultry barn manager and she was scheduled to follow up as an outpatient for treatment and removal of stone; she was cleared for discharge by poultry barn manager for discharge and no further diagnostic work was recommended. She also exhibited drug seeking behavior for narcotics. Her mentation returned to baseline prior to discharge condition at discharge-stable 31 minutes spent preparing discharge Disposition: DISCHARGED TO HOME OR SELFCARE - Discharge Diagnoses (1) Pancreatic duct calculus Status: Acute (2) Elevated troponin Status: Acute (3) Pancreatic duct calculus Status: Chronic (4) Altered mental status Status: Acute Qualifiers: Altered mental status type: A Coma depth: C Coma timing: C (5) Diabetes 1.5, managed as type 2 Status: Chronic (6) Hypertension Status: Chronic Qualifiers: Hypertension type: essential hypertension Qualified Code(s): I10 - Essential (primary) hypertension Core Measure Documentation - Palliative Care Palliative Care/ Comfort Measures: Not Applicable - Core Measures Any of the following diagnoses?: none Exam - Constitutional Vitals: Temp Pulse Resp BP Pulse Ox 98.1 F 66 22 163/80 97 01/11/17 05:36 01/11/17 09:10 01/11/17 09:11 01/11/17 09:10 01/11/17 05:36 General appearance: Present: no acute distress, well-nourished - EENT Eyes: Present: PERRL, EOM intact. Absent: scleral icterus, conjunctival injection ENT: hearing intact, clear oral mucosa, no oropharyngeal erythema, no poor dentition - Neck Neck: Present: supple, normal ROM. Absent: enlarged thyroid, masses or JVD - Respiratory Respiratory effort: normal Respiratory: negative: diminished, rales, rhonchi, wheezing - Cardiovascular Rhythm: regular Heart Sounds: Present: S1 & S2. Absent: gallop - Extremities Extremities: no ischemia, pulses intact, pulses symmetrical, No edema Peripheral Pulses: within normal limits - Abdominal General gastrointestinal: Present: soft, non-tender, non-distended, normal bowel sounds Female genitourinary: Present: deferred - Rectal Rectal Exam: deferred - Integumentary Integumentary: Present: clear - Musculoskeletal Musculoskeletal: strength equal bilaterally - Psychiatric Psychiatric: appropriate mood/affect, intact judgment & insight, cooperative - Neurologic Neurologic: CNII-XII intact, moves all extremities Plan Activity: advance as tolerated, fall precautions Diet: low salt, diabetic Follow up with: PRIMARY CAREMD [Primary Care Provider] - 3-5 Days MARIBETH CARBAJAL MD [Staff Physician] - 7 Days
--- NOTE | 2017-01-11 11:07 | Progress Note ---
Assessment and Plan 1. 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 Her baseline CR is about 2.4. 2. Abdominal pain, chronic 2/2 pancreatic duct stone 4. Anemia likely 2/2 of chronic kidney disease 5. Type 2 diabetes mellitus, 6. Essential Hypertension 7. History of coronary artery disease. 8. Dilated cardiomyopathy EF 25-30% 9. History of peripheral vascular disease. Plan: She is close to her baseline CR CT scan reviewed. No hydronephrosis seen Urine with + proteinuria but no blood. Proteinuria likely 2/2 DM nephropathy She is already on ACEI to decrease progression of renal disease/reduce proteinuria+cardiac indications No further work up planned from renal perspective. Will follow progression as out patient. Contact information to our office provided. Discussed need for tight glucose/BP control to prevent further progression of her renal disease. Avoid nephrotoxins including NSAIDs, contrast exposure Subjective Date of service: 01/11/17 Principal diagnosis: Pancreatic duct stone Interval history: No new changes. No SOB/CP. Has generalized body aches/abdominal pain Objective - Vital Signs Vital signs: Vital Signs - 12hr 01/10/17 01/11/17 01/11/17 23:23 01:01 04:46 Temperature 98.6 F Pulse Rate 63 Pulse Rate [ 63 Left Radial] Respiratory 20 18 Rate Blood Pressure 138/74 Blood Pressure 138/74 [Left Radial Artery] O2 Sat by Pulse 99 Oximetry 01/11/17 01/11/17 01/11/17 04:47 05:21 05:36 Temperature 98.1 F Pulse Rate 63 Pulse Rate [ 67 Left Radial] Respiratory 18 20 Rate Blood Pressure Blood Pressure 172/86 [Left Radial Artery] O2 Sat by Pulse 97 Oximetry 01/11/17 01/11/17 01/11/17 06:57 08:35 09:04 Temperature 97.7 F Pulse Rate 72 68 Pulse Rate [ 68 Left Radial] Respiratory 20 Rate Blood Pressure 172/87 163/80 Blood Pressure 135/64 [Left Radial Artery] O2 Sat by Pulse 97 Oximetry 01/11/17 01/11/17 01/11/17 09:09 09:10 09:11 Temperature Pulse Rate 66 66 Pulse Rate [ Left Radial] Respiratory 22 Rate Blood Pressure 163/80 163/80 Blood Pressure [Left Radial Artery] O2 Sat by Pulse Oximetry - General Appearance General appearance: well-developed, well-nourished, appears stated age EENT: PERRL, mucous membranes moist Neck: no JVD, no thyromegaly, no carotid bruit, supple Respiratory: Present: Clear to Ascultation. Absent: Wheezes Cardiology: regular, normal heart rate, S1S2, no murmurs Gastrointestinal: normoactive bowel sounds, no tenderness, no distended Integumentary: no rash, warm and dry Neurologic: no focal deficit, alert and oriented x3, reflexes 2+ and symmetric, gait normal, strength 5/5 Musculoskeletal: no deformities, no erythema, no cyanosis, no clubbing Psychiatric: mood/affect appropriate, cooperative - Lab 01/09/17 04:00 01/09/17 04:00 Most recent lab results Calcium 7.9 mg/dL (8.4-10.2) L 01/09/17 04:00
[2017-01-11] MEDS: VANCOMYCIN/NS 1 GM/250 ML 1 GM/250 ML BAG IV SCH (22:30)
[2017-01-12] MEDS: PERCOCET 5/325 PO SCH ×3 (04:55→18:53)
[2017-01-12] MEDS: BIDIL 20/37.5MG PO SCH ×3 (05:49→21:57)
--- NOTE | 2017-01-12 10:07 | Progress Note ---
Assessment and Plan 1. 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 Her baseline CR is about 2.4. 2. Abdominal pain, chronic 2/2 pancreatic duct stone 4. Anemia likely 2/2 of chronic kidney disease 5. Type 2 diabetes mellitus, 6. Essential Hypertension 7. History of coronary artery disease. 8. Dilated cardiomyopathy EF 25-30% 9. History of peripheral vascular disease. Plan: She is close to her baseline CR based on labs from 01/11. F/u on labs today CT scan reviewed. No hydronephrosis seen Urine with + proteinuria but no blood. Proteinuria likely 2/2 DM nephropathy She is already on ACEI to decrease progression of renal disease/reduce proteinuria+cardiac indications No further work up planned from renal perspective. Will follow progression as out patient. Contact information to our office provided. Discussed need for tight glucose/BP control to prevent further progression of her renal disease. Avoid nephrotoxins including NSAIDs, contrast exposure Subjective Date of service: 01/12/17 Principal diagnosis: Pancreatic duct stone Interval history: Has generalized body aches/abdominal pain Objective - Vital Signs Vital signs: Vital Signs - 12hr 01/11/17 01/11/17 01/11/17 22:29 22:30 23:16 Temperature Pulse Rate 69 69 70 Pulse Rate [ Left Radial] Respiratory 18 Rate Blood Pressure 147/71 147/71 Blood Pressure [Left Radial Artery] O2 Sat by Pulse Oximetry 01/11/17 01/12/17 01/12/17 23:29 01:00 04:55 Temperature 98 F Pulse Rate Pulse Rate [ 72 Left Radial] Respiratory 18 18 18 Rate Blood Pressure Blood Pressure 143/68 [Left Radial Artery] O2 Sat by Pulse Oximetry 01/12/17 01/12/17 05:59 07:31 Temperature 98.2 F 98.8 F Pulse Rate Pulse Rate [ 70 71 Left Radial] Respiratory 19 18 Rate Blood Pressure Blood Pressure 141/77 155/80 [Left Radial Artery] O2 Sat by Pulse 91 94 Oximetry - General Appearance General appearance: well-developed, well-nourished, appears stated age EENT: PERRL, mucous membranes moist Neck: no JVD, no thyromegaly, no carotid bruit, supple Respiratory: Present: Clear to Ascultation. Absent: Wheezes Cardiology: regular, normal heart rate, S1S2, no murmurs Gastrointestinal: normoactive bowel sounds, no tenderness Integumentary: no rash, warm and dry Neurologic: no focal deficit, alert and oriented x3, reflexes 2+ and symmetric, gait normal, strength 5/5 - Lab 01/09/17 04:00 01/09/17 04:00 Most recent lab results Calcium 7.9 mg/dL (8.4-10.2) L 01/09/17 04:00
[2017-01-12] MEDS: LOVENOX SUB-Q SCH (12:29)
[2017-01-12] MEDS: PROTONIX PO SCH (12:30)
[2017-01-12] MEDS: BABY ASPIRIN PO SCH (12:30)
[2017-01-12] MEDS: LOPRESSOR PO SCH ×2 (12:30→21:56)
[2017-01-12] MEDS: NORVASC PO SCH (12:30)
[2017-01-12] MEDS: ZESTRIL PO SCH (12:31)
[2017-01-12] MEDS: REFRESH CELLUVISC OU SCH ×3 (12:31→21:58)
--- NOTE | 2017-01-12 16:22 | Progress Note ---
Assessment and Plan Assessment and plan: 1. Abdominal pain -due to chronic pancreatic duct stone and chronic lipase elevation-d/wed with GI-patient with chronic pancreatic duct calculus that was thoroughly worked up at [facility] and no need for MRI scan here. she will need f/u GI in the clinic on discharge 2. Hypertension control- better; cotn meds; adjust as needed 3. Diabetes type 2 with hypoglycemia- hold insulin; start D5 1/2 NS; monitor accuchecks 4. Chronic pain- cotn prn IV morphine for now and minimize narcotics in view of 2 above 5. Chronic back pain- increase percocet 10mg scheduled; d/c morphine 6. Debility- PT eval and SNF or home PT if indicated 7. DVT prophylaxis-lovenox - Patient Problems (1) Pancreatic duct calculus Current Visit: Yes Status: Acute (2) Elevated troponin Current Visit: Yes Status: Acute (3) Pancreatic duct calculus Current Visit: Yes Status: Chronic (4) Altered mental status Current Visit: No Status: Acute Qualifiers: Altered mental status type: A Coma depth: C Coma timing: C (5) Diabetes 1.5, managed as type 2 Current Visit: No Status: Chronic (6) Hypertension Current Visit: No Status: Chronic Qualifiers: Hypertension type: essential hypertension Qualified Code(s): I10 - Essential (primary) hypertension History Interval history: f/u abdominal pain ; stone in pancreatic duct Patient seen at the bedside; did not go home yesteday due to issues with house matta Hospitalist Physical - Constitutional Vitals: Temp Pulse Resp BP Pulse Ox 98.4 F 66 18 170/72 98 01/12/17 15:18 01/12/17 15:18 01/12/17 15:18 01/12/17 15:18 01/12/17 15:18 General appearance: Present: no acute distress, well-nourished - EENT Eyes: Present: PERRL ENT: hearing intact, clear oral mucosa, no oropharyngeal erythema, no poor dentition - Neck Neck: Present: supple, normal ROM. Absent: enlarged thyroid, masses or JVD - Respiratory Respiratory effort: normal Respiratory: negative: diminished, rales, rhonchi, wheezing - Cardiovascular Rhythm: regular Heart Sounds: Present: S1 & S2. Absent: gallop - Extremities Extremities: no ischemia, pulses intact, pulses symmetrical Peripheral Pulses: within normal limits - Abdominal General gastrointestinal: soft, non-tender, non-distended, normal bowel sounds - Integumentary Integumentary: Present: clear - Psychiatric Psychiatric: appropriate mood/affect, intact judgment & insight, cooperative - Neurologic Neurologic: CNII-XII intact, moves all extremities Results - Labs CBC & Chem 7: 01/09/17 04:00 01/09/17 04:00 Labs: Laboratory Last Values WBC 6.9 K/mm3 (4.5-11.0) 01/09/17 04:00 RBC 2.99 M/mm3 (3.65-5.03) L 01/09/17 04:00 Hgb 8.4 gm/dl (10.1-14.3) L 01/09/17 04:00 Hct 29.2 % (30.3-42.9) L 01/09/17 04:00 MCV 88 fl (79-97) 01/09/17 04:00 MCH 28 pg (28-32) 01/09/17 04:00 MCHC 32 % (30-34) 01/09/17 04:00 RDW 17.5 % (13.2-15.2) H 01/09/17 04:00 Plt Count 252 K/mm3 (140-440) 01/09/17 04:00 Lymph % (Auto) 24.5 % (13.4-35.0) 01/09/17 04:00 [place] % (Auto) 10.7 % (0.0-7.3) H 01/09/17 04:00 Eos % (Auto) 1.9 % (0.0-4.3) 01/09/17 04:00 Baso % (Auto) 0.6 % (0.0-1.8) 01/09/17 04:00 Lymph # 1.7 K/mm3 (1.2-5.4) 01/09/17 04:00 [place] # 0.7 K/mm3 (0.0-0.8) 01/09/17 04:00 Eos # 0.1 K/mm3 (0.0-0.4) 01/09/17 04:00 Baso # 0.0 K/mm3 (0.0-0.1) 01/09/17 04:00 Seg Neutrophils % 62.3 % (40.0-70.0) 01/09/17 04:00 Seg Neutrophils # 4.3 K/mm3 (1.8-7.7) 01/09/17 04:00 Sodium 143 mmol/L (137-145) 01/09/17 04:00 Potassium 4.0 mmol/L (3.6-5.0) 01/09/17 04:00 Chloride 106.2 mmol/L (98-107) 01/09/17 04:00 Carbon Dioxide 17 mmol/L (22-30) L 01/09/17 04:00 Anion Gap 24 mmol/L 01/09/17 04:00 BUN 25 mg/dL (7-17) H 01/09/17 04:00 Creatinine 2.9 mg/dL (0.7-1.2) H 01/09/17 04:00 Estimated GFR 19 ml/min 01/09/17 04:00 BUN/Creatinine Ratio 8.62 % 01/09/17 04:00 Glucose 63 mg/dL (65-100) L 01/09/17 04:00 POC Glucose 103 (70-105) 01/12/17 11:17 Lactic Acid 1.2 mmol/L (0.7-2.0) 01/08/17 00:11 Calcium 7.9 mg/dL (8.4-10.2) L 01/09/17 04:00 Total Bilirubin 0.2 mg/dL (0.1-1.2) 01/07/17 20:37 AST 25 units/L (5-40) 01/07/17 20:37 ALT 13 units/L (7-56) 01/07/17 20:37 Alkaline Phosphatase 71 units/L (35-129) 01/07/17 20:37 Ammonia 24.0 umol/L (25-60) L 01/08/17 00:11 Total Creatine Kinase 438 units/L (30-135) H 01/08/17 12:00 CK-MB (CK-2) 11.8 ng/mL (0.0-4.0) H 01/08/17 12:00 CK-MB (CK-2) Rel Index 2.6 (0-4) 01/08/17 12:00 Troponin T 0.390 ng/mL (0.00-0.029) H* 01/08/17 12:00 Total Protein 6.9 g/dL (6.3-8.2) 01/07/17 20:37 Albumin 3.3 g/dL (3.9-5) L 01/07/17 20:37 Albumin/Globulin Ratio 0.9 % 01/07/17 20:37 Triglycerides 150 mg/dL (2-149) H 01/07/17 20:37 Cholesterol 252 mg/dL (50-199) H 01/07/17 20:37 LDL Cholesterol Direct 168 mg/dL (50-130) H 01/07/17 20:37 HDL Cholesterol 54 mg/dL (40-59) 01/07/17 20:37 Cholesterol/HDL Ratio 4.66 % 01/07/17 20:37 Lipase 11 units/L (13-60) L 01/07/17 20:37 Urine Color Yellow (Yellow) 01/07/17 20:42 Urine Turbidity Clear (Clear) 01/07/17 20:42 Urine pH 5.0 (5.0-7.0) 01/07/17 20:42 Ur Specific [place] 1.020 (1.003-1.030) 01/07/17 20:42 Urine Protein 100 mg/dl mg/dL (Negative) 01/07/17 20:42 Urine Glucose (UA) 150 mg/dL (Negative) 01/07/17 20:42 Urine Ketones Tr mg/dL (Negative) 01/07/17 20:42 Urine Blood Neg (Negative) 01/07/17 20:42 Urine Nitrite Neg (Negative) 01/07/17 20:42 Urine Bilirubin Neg (Negative) 01/07/17 20:42 Urine Urobilinogen < 2.0 mg/dL (<2.0) 01/07/17 20:42 Ur Leukocyte Esterase Neg (Negative) 01/07/17 20:42 Urine WBC (Auto) < 1.0 /HPF (0.0-6.0) 01/07/17 20:42 Urine RBC (Auto) 7.0 /HPF (0.0-6.0) 01/07/17 20:42 Urine Bacteria (Auto) 1+ /HPF (Negative) 01/07/17 20:42 Urine Mucus Few /HPF 01/07/17 20:42 Salicylates 0.4 mg/dL (2.8-20.0) L 01/08/17 00:11 Acetaminophen < 15.0 ug/mL (10.0-30.0) 01/08/17 00:11
[2017-01-12] MEDS: MORPHINE IV PRN (21:58)
[2017-01-13] MEDS: PERCOCET 5/325 PO SCH ×3 (00:37→12:15)
[2017-01-13] MEDS: BIDIL 20/37.5MG PO SCH (05:51)
--- NOTE | 2017-01-13 08:37 | Discharge Summary ---
Providers - Providers Date of Admission: 01/08/17 01:01 Date of discharge: 01/13/17 Attending physician: RIKA PATEL 01/09/17 14:28 Consult to Physician [CONS] Routine Consulting Provider: CHELLY GONCALVES Reason For Exam: acute on chronic renal failure Place consult to:: DR GONCALVES Notified:: DR GONCALVES 01/12/17 14:46 Physical Therapy Evaluation and Treat [CONS] Routine Comment: Reason For Exam: recommends for home Primary care physician: HOU[employer]IC Hospitalization Reason for admission: AMS Condition: Fair Procedures: CT scan - abdomen: report reviewed (CT scan of abdomen and pelvis- cholelithiasis and irrigated millimeter calcification in the head of the pancreas with mild dilatation of what appears to be a pancreatic duct. This could be obstructing stone in the region of the ampulla or possibly an accessory pancreatic duct. Mild constipation.) Hospital course: Mr. Solano is a 71 yo F who presented to the ER with abdominal pain and altered mental status ; CT scan confirmed pancreatic duct stone; she was seen by the dry cleaning machine operator and she was scheduled to follow up as an outpatient for treatment and removal of stone; she was cleared for discharge by dry cleaning machine operator for discharge and no further diagnostic work was recommended. Patient had a slight rise in creatinine to 3.0 and was evaluated by nephrology consultation. Etiology was felt to be secondary to acute on chronic kidney disease stage IV with acute kidney injury likely secondary to prerenal azotemia/vasomotor nephropathy. Nephrology felt that there was no need for intervention given the fact that her creatinine was near her baseline. She also exhibited drug seeking behavior for narcotics. Her mentation returned to baseline prior to discharge. Patient did have an episode of hypoglycemia on the day of discharge which was resolved with D5 IV fluids. Her insulin was held and patient returned back to her baseline. condition at discharge-stable 31 minutes spent preparing discharge Disposition: DISCHARGED TO HOME OR SELFCARE - Discharge Diagnoses (1) Hypoglycemia Status: Resolved (2) HARSHA (acute kidney injury) Status: Chronic (3) Accelerated hypertension Status: Resolved (4) Pancreatic duct calculus Status: Chronic (5) Altered mental status Status: Resolved Qualifiers: Altered mental status type: A Coma depth: C Coma timing: C (6) Renal insufficiency Status: Acute Core Measure Documentation - Palliative Care Palliative Care/ Comfort Measures: Not Applicable - Core Measures Any of the following diagnoses?: none Exam - Constitutional Vitals: Temp Pulse Resp BP Pulse Ox 98.3 F 70 20 147/67 100 01/13/17 04:10 01/13/17 05:51 01/13/17 04:10 01/13/17 05:51 01/13/17 04:10 General appearance: Present: no acute distress, well-nourished - EENT Eyes: Present: PERRL ENT: hearing intact, clear oral mucosa - Neck Neck: Present: supple, normal ROM - Respiratory Respiratory effort: normal Respiratory: bilateral: CTA - Cardiovascular Heart Sounds: Present: S1 & S2. Absent: rub, click - Extremities Extremities: pulses symmetrical, No edema Peripheral Pulses: within normal limits - Abdominal General gastrointestinal: Present: soft, non-tender, non-distended, normal bowel sounds Female genitourinary: Present: normal - Integumentary Integumentary: Present: clear, warm, dry - Musculoskeletal Musculoskeletal: gait normal, strength equal bilaterally - Psychiatric Psychiatric: appropriate mood/affect, intact judgment & insight - Neurologic Neurologic: CNII-XII intact, moves all extremities Plan Activity: no restrictions Weight Bearing Status: Full Weight Bearing Diet: diabetic Special Instructions: home health RN Follow up with: MARIBETH CARBAJAL MD [Staff Physician] - 7 Days PRIMARY CARE, [Primary Care Provider] - 3-5 Days Prescriptions: oxyCODONE /ACETAMINOPHEN [Percocet 5/325 mg] 2 tab PO Q6H #15 tablet
[2017-01-13] MEDS: MORPHINE IV PRN (08:54)
[2017-01-13 08:56] LABS: Basophils % (Auto) 0.8 % (0.0-1.8); Eosinophils % (Auto) 0.5 % (0.0-4.3); Hematocrit 30.6 % (30.3-42.9); Hemoglobin 9.8 gm/dl (10.1-14.3); Mean Corpuscular HGB Conc 32 % (30-34); Mean Corpuscular Hemoglobin 28 pg (28-32); Mean Corpuscular Volume 86 fl (79-97); Platelet Count 284 K/mm3 (140-440); Red Blood Count 3.55 M/mm3 (3.65-5.03); White Blood Count 6.6 K/mm3 (4.5-11.0)
[2017-01-13 09:12] LABS: BUN/Creatinine Ratio 7.08; Calcium 8.2 mg/dL (8.4-10.2); Chloride 108.3 mmol/L (98-107); Potassium 3.4 mmol/L (3.6-5.0)
[2017-01-13] MEDS: NORVASC PO SCH (10:57)
[2017-01-13] MEDS: LOPRESSOR PO SCH (10:57)
[2017-01-13] MEDS: BABY ASPIRIN PO SCH (10:57)
[2017-01-13] MEDS: REFRESH CELLUVISC OU SCH (10:58)
[2017-01-13] MEDS: ZESTRIL PO SCH (10:58)
[2017-01-13] MEDS: LOVENOX SUB-Q SCH (10:58)
[2017-01-13] MEDS: PROTONIX PO SCH (10:58)
--- NOTE | 2017-01-13 12:02 | Progress Note ---
Assessment and Plan 1. 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 Her baseline CR is about 2.4. 2. Abdominal pain, chronic 2/2 pancreatic duct stone 4. Anemia likely 2/2 of chronic kidney disease 5. Type 2 diabetes mellitus, 6. Essential Hypertension 7. History of coronary artery disease. 8. Dilated cardiomyopathy EF 25-30% 9. History of peripheral vascular disease. 10. Hypokalemia Plan: She is at her baseline CR CT scan reviewed. No hydronephrosis seen Urine with + proteinuria but no blood. Proteinuria likely 2/2 DM nephropathy She is already on ACEI to decrease progression of renal disease/reduce proteinuria+cardiac indications No further work up planned from renal perspective. Will follow progression as out patient. Contact information to our office provided. Will replete potassium with 40 meQ of KCL PO Discussed need for tight glucose/BP control to prevent further progression of her renal disease. Avoid nephrotoxins including NSAIDs, contrast exposure Subjective Date of service: 01/13/17 Principal diagnosis: Pancreatic duct stone Interval history: No new complaints Objective - Vital Signs Vital signs: Vital Signs - 12hr 01/13/17 01/13/17 01/13/17 04:10 05:51 08:30 Temperature 98.3 F 98.6 F Pulse Rate 70 Pulse Rate [ 70 70 Left Radial] Respiratory 20 16 Rate Blood Pressure 147/67 Blood Pressure 147/67 157/83 [Left Radial Artery] O2 Sat by Pulse 100 99 Oximetry 01/13/17 10:56 Temperature 98.6 F Pulse Rate Pulse Rate [ 70 Left Radial] Respiratory 16 Rate Blood Pressure Blood Pressure [Left Radial Artery] O2 Sat by Pulse 99 Oximetry - General Appearance General appearance: well-developed, well-nourished, appears stated age EENT: PERRL, mucous membranes moist Neck: no JVD, no thyromegaly, no carotid bruit, supple Respiratory: Present: Clear to Ascultation. Absent: Wheezes Cardiology: regular, normal heart rate, S1S2, no murmurs Gastrointestinal: normoactive bowel sounds, no tenderness Integumentary: no rash, warm and dry Neurologic: no focal deficit, alert and oriented x3, reflexes 2+ and symmetric, gait normal, strength 5/5 Musculoskeletal: no deformities, no erythema, no cyanosis, no clubbing Psychiatric: mood/affect appropriate, cooperative - Lab 01/13/17 08:00 01/13/17 08:00 Most recent lab results Calcium 8.2 mg/dL (8.4-10.2) L 01/13/17 08:00
[2017-01-13] MEDS ORDERED: K-DUR PO ONE (12:03)
[2017-01-13 13:11] VITALS: BP 147/80
== END 2017-01-13 13:17 | disposition home or self-care (01) | DRG 438 ==
LOC: ED 20:11 → 4A 01-08 01:01
PROVIDERS: ADMIT Internal Medicine; ATTEND Hospitalist
DX: K86.89 Other specified diseases of pancreas (principal); G93.41 Metabolic encephalopathy; N17.0 Acute kidney failure with tubular necrosis; I13.0 Hypertensive heart and chronic kidney disease with heart failure and stage 1 through stage 4 chronic kidney disease, or unspecified chronic kidney disease; N18.4 Chronic kidney disease, stage 4 (severe); I50.22 Chronic systolic (congestive) heart failure; I42.0 Dilated cardiomyopathy; E11.649 Type 2 diabetes mellitus with hypoglycemia without coma; E11.22 Type 2 diabetes mellitus with diabetic chronic kidney disease; D63.1 Anemia in chronic kidney disease; I25.10 Atherosclerotic heart disease of native coronary artery without angina pectoris; E11.51 Type 2 diabetes mellitus with diabetic peripheral angiopathy without gangrene; Z86.73 Personal history of transient ischemic attack (TIA), and cerebral infarction without residual deficits; Z79.4 Long term (current) use of insulin; Z79.01 Long term (current) use of anticoagulants; Z79.82 Long term (current) use of aspirin; Z79.891 Long term (current) use of opiate analgesic
CPT/HCPCS: 36415; 70450; 71010; 74176; 80048; 80053; 80061; 80202; 80320; 81001; 82140; 82550; 82553; 82962; 83690; 84484; 85025; 87040; 93005; 93010; 93306; 94760; 96361; 96365; 96372; 96375; 96376; G0480; G8978-GP; G8979-GP; J0360; J1650; J2060; J2270; J2543; J3370; J7040

== ENCOUNTER 2017-01-15 03:25 | Emergency (ER) | payer MEDICARE ==
[2017-01-15 07:37] LABS: Bilirubin,Urine NEG (Negative); Blood,Urine SM (Negative); Ketones,Urine NEG (Negative); Leukocyte Esterase,Urine SM (Negative); Mucus,Urine FEW /HPF; Nitrite,Urine NEG (Negative); Urobilinogen,Urine < 2.0 mg/dL (<2.0)
[2017-01-15 07:38] LABS: Protein,Urine >500 mg/dL (Negative)
[2017-01-15 07:43] LABS: Hematocrit 33.2 % (30.3-42.9); Hemoglobin 10.6 gm/dl (10.1-14.3); Mean Corpuscular HGB Conc 32 % (30-34); Mean Corpuscular Hemoglobin 28 pg (28-32); Mean Corpuscular Volume 88 fl (79-97); Platelet Count 215 K/mm3 (140-440); Red Cell Distribution Width 17.9 % (13.2-15.2); White Blood Count 5.9 K/mm3 (4.5-11.0)
[2017-01-15 08:02] LABS: Alanine Aminotransferase 13 units/L (7-56); Albumin 2.7 g/dL (3.9-5); Alkaline Phosphatase 61 units/L (35-129); Anion Gap 22 mmol/L; BUN/Creatinine Ratio 7.61; Bilirubin,Total < 0.2 mg/dL (0.1-1.2); Blood Urea Nitrogen 16 mg/dL (7-17); Calcium 8.3 mg/dL (8.4-10.2); Carbon Dioxide 15 mmol/L (22-30); Chloride 107.4 mmol/L (98-107); Glucose 88 mg/dL (65-100); Potassium 3.5 mmol/L (3.6-5.0); Sodium 141 mmol/L (137-145); Total Protein 5.4 g/dL (6.3-8.2)
--- NOTE | 2017-01-15 08:20 | Emergency Department Report ---
HPI - General Chief Complaint: Abdominal Pain Time Seen by Provider: 01/15/17 07:09 - HPI HPI: Chief complaint: Abdominal pain, nausea HPI: Patient is a 71-year-old female with a history of pancreatic duct stone is being followed by net mender but has not followed up to have it removed. Patient also has history of hypertension, hypercholesterolemia, CVA, diabetes, coronary artery disease, renal insufficiency and chronic musculoskeletal pain. Patient was just recently admitted to the hospital and just discharged 2 days ago for the same problem. Patient was referred back to her net mender who will attempt to arrange once again for patient to be seen by Dr. Villatoro for removal of her chronic pancreatic stone. Old chart was reviewed. Patient states that she is not getting any relief from her pain with her Percocet and is having difficulty arranging for her appointment. Mode of arrival: [EMS] Source: [Patient] [old chart] Began: Ongoing chronic pain Duration: Ongoing Context: See above Quality: Sharp Severity: 10 out of 10 Improved with: Nothing Worsened with: Nothing Associated signs and symptoms: Nausea but no vomiting or diarrhea. No fever. Slight dry cough. ED Past Medical Hx - Past Medical History Previous Medical History?: Yes Hx Hypertension: Yes Hx CVA: Yes Hx Heart Attack/AMI: Yes (2011) Hx Diabetes: Yes Additional medical history: Scoliosis, chronic pain, left sciatica - Surgical History Past Surgical History?: Yes Additional Surgical History: right shoulder rotator cuff surgery - Social History Smoking Status: Never Smoker Substance Use Type: None - Medications Home Medications: Home Medications Medication Instructions Recorded Confirmed Last Taken Type Aspirin [Aspirin BABY CHEW TAB] 81 mg PO QDAY 07/29/15 09/28/16 1 Day Ago History Carboxymethyl/Gly/Poly80/Pf 1 drop OU QID 07/29/15 09/28/16 1 Day Ago History [Refresh Optive Advanced Drops] Simvastatin [Zocor TAB] 20 mg PO QHS 07/29/15 09/28/16 1 Day Ago History Omeprazole Magnesium [PriLOSEC Otc] 40 mg PO QDAY 09/19/16 09/28/16 1 Day Ago History Bupropion HCl [buPROPion] 75 mg PO BID #60 tablet 12/14/16 Unknown Rx Lisinopril [Zestril TAB] 20 mg PO QDAY #30 tablet 12/14/16 Unknown Rx Metoprolol [Lopressor TAB] 150 mg PO BID #60 tablet 12/14/16 Unknown Rx amLODIPine [Norvasc] 10 mg PO DAILY #30 tab 12/14/16 Unknown Rx oxyCODONE /ACETAMINOPHEN [Percocet 2 tab PO Q6H #15 tablet 01/13/17 Unknown Rx 5/325 mg] ED Review of Systems ROS: Stated complaint: STOMACH PAIN Other details as noted in HPI ROS Constitutional: No fever ENT: No uri symptoms Cardiovascular: No chest pain Respiratory: No sob GI: No vomiting or diarrhea : No dysuria frequency or urgency, Skin: No rash Neuro: No focal weakness or numbness Psych: Chronic pain Edvin/lymph: No edema Physical Exam - Physical Exam Vital Signs: Vital Signs 01/15/17 01/15/17 04:07 07:25 Temperature 98.7 F 98.8 F Pulse Rate 101 H 103 H Respiratory 22 18 Rate Blood Pressure 188/101 Blood Pressure 189/90 [Left] O2 Sat by Pulse 100 100 Oximetry Physical Exam: GENERAL: The patient is well-developed well-nourished. Patient is tearful. HEENT: Normocephalic. Atraumatic. Extraocular motions are intact. Patient has moist mucous membranes. NECK: Supple. No meningitic signs are noted. There is no adenopathy noted. CHEST/LUNGS: Clear to auscultation. There is no respiratory distress noted. HEART/CARDIOVASCULAR: Regular. There is no tachycardia. There is no gallop rub or murmur. ABDOMEN: Abdomen is soft, nontender. Patient has normal bowel sounds. There is no abdominal distention. SKIN: There is no rash. There is no edema. There is no diaphoresis. NEURO: The patient is awake, alert, and oriented. The patient is cooperative. The patient has no focal neurologic deficits. The patient has normal speech. MUSCULOSKELETAL: There is no tenderness or deformity. There is no limitation range of motion. There is no evidence of acute injury. ED Course Vital Signs 01/15/17 01/15/17 04:07 07:25 Temperature 98.7 F 98.8 F Pulse Rate 101 H 103 H Respiratory 22 18 Rate Blood Pressure 188/101 Blood Pressure 189/90 [Left] O2 Sat by Pulse 100 100 Oximetry - Reevaluation(s) Reevaluation #1: 01/15/17 Old chart was reviewed, spoke with hospitalist and Dr. Land who had seen the patient in the hospital and in his office and is in the process of having her seen by Dr. Villatoro for removal of her pancreatic duct stone. Also spoke with older adult social work specialist and patient has home health nurses and is arranging to have someone there for her today as well as occupational and physical therapy follow- up at home. Dr. Land requests that the patient call his office and they will set up her appointment with Dr. Villatoro. Patient was given a shot of Dilaudid in the emergency department and will be sent home on her Percocet. ED Medical Decision Making - Lab Data Result diagrams: 01/15/17 07:30 01/15/17 07:30 Laboratory Tests 01/15/17 Unknown Ur Specific [place] 1.012 Urine Protein >500 Urine Glucose (UA) 50 Urine Ketones Neg Urine Urobilinogen < 2.0 Ur Leukocyte Esterase Sm Urine WBC (Auto) 5.0 Urine RBC (Auto) 3.0 Sodium 141, potassium 3.4, chloride 107, anion gap 22 Critical care attestation.: If time is entered above; I have spent that time in minutes in the direct care of this critically ill patient, excluding procedure time. ED Disposition Clinical Impression: Pancreatic duct calculus Chronic pain Qualifiers: Chronic pain type: other chronic pain Qualified Code(s): G89.29 - Other chronic pain Disposition: DISCHARGED TO HOME OR SELFCARE Is pt being admited?: No Does the pt Need Aspirin: No Condition: Stable Instructions: Abdominal Pain (ED) Referrals: PRIMARY CARE,MD [Primary Care Provider] - 3-5 Days [facility] [Provider Group] - 3-5 Days (Call Dr. Vázquez office today and they will set up an appointment for you with Dr. Villatoro at [facility] for removal of your pancreatic duct stone.) Time of Disposition: 12:06
[2017-01-15 08:22] LABS: Basophils % (Manual) 0 % (0.0-1.8); Blastocytes % (Manual) 0 %; Eosinophils % (Manual) 0 % (0.0-4.3)
[2017-01-15 08:23] LABS: Diff Status Complete; Ovalocytes 1+; Poikilocytosis 1+; Schistocytes Rare
[2017-01-15] MEDS ORDERED: ZESTRIL PO ONE (08:59)
[2017-01-15] MEDS ORDERED: NORVASC PO ONE (08:59)
[2017-01-15] MEDS ORDERED: LOPRESSOR PO ONE (08:59)
[2017-01-15 10:20] VITALS: BP 155/94
[2017-01-15] MEDS ORDERED: DILAUDID ONE (11:09)
[2017-01-15] MEDS ORDERED: DILAUDID IM ONE (11:20)
== END 2017-01-15 12:00 | disposition home or self-care (01) ==
LOC: ED 03:25
DX: K86.89 Other specified diseases of pancreas (principal); G89.29 Other chronic pain; I10 Essential (primary) hypertension; E78.5 Hyperlipidemia, unspecified; Z86.73 Personal history of transient ischemic attack (TIA), and cerebral infarction without residual deficits; N28.9 Disorder of kidney and ureter, unspecified; E11.9 Type 2 diabetes mellitus without complications; M41.9 Scoliosis, unspecified; Z79.82 Long term (current) use of aspirin
CPT/HCPCS: 36415; 80053; 81001; 85007; 85025; 96372; 99284; J1170